=== PATIENT | female | born 1955 | race Caucasian/White ===

== ENCOUNTER 2021-04-18 01:01 | Inpatient (IN) ==
[2021-04-18 01:29] LABS: Basophils # 0.1 10*3/uL (0.0-0.2); Basophils % 0.6 % (0.0-0.8); Eosinophils # 0.1 10*3/uL (0.0-0.87); Eosinophils % 1.2 % (0.00-10.9); Hematocrit 35.2 VOL% (35.7-47.0); Hemoglobin 12.3 GM/DL (12.0-16.0); Immature Granulocytes % 1.3 %; Immature Granulocytes Absolute 0.15 #; Lymphocytes # 2.2 10*3/uL (1.4-4.0); Mean Corpuscular HGB Conc 34.9 GM/DL (32-36); Mean Corpuscular Volume 94.9 FL (87-102); Mean Platelet Volume 10.1 FL (9.6-12.0); Monocytes % 11.7 % (1.7-12.7); Neutrophils % 66.2 % (38.7-73.9); Platelet Count 173 T/CUMM (130-400); Red Blood Count 3.71 MC/CUMM (3.8-5.5); Red Cell Distribution Width 15.2 % (9.3-17.3); White Blood Count 11.5 T/CUMM (4-12)
[2021-04-18 01:40] LABS: INR 1.5; PT Patient Result 16.2 SECS (10.5-12.0)
[2021-04-18] MEDS ORDERED: ONDANSETRON 4 MG/2 ML VIAL IV ONE (01:50)
[2021-04-18] MEDS ORDERED: MORPHINE 2 MG/1 ML SYRINGE IV STA (01:50)
[2021-04-18 02:24] LABS: Albumin 3.2 G/DL (3.4-5.0); Bilirubin,Total 0.5 MG/DL (0.20-1.00); Calcium 8.6 MG/DL (8.5-10.1); Osmolality,Calculated 280.4 MOS/KG (273-304); Potassium 4.1 MMOL/L (3.5-5.1); Total Protein 6.8 G/DL (6.4-8.2)
[2021-04-18] MEDS ORDERED: MORPHINE 2 MG/1 ML SYRINGE IV PRN (02:45)
[2021-04-18] MEDS: PANTOPRAZOLE 40 MG VIAL IV SCH (09:25)
[2021-04-18] MEDS: ACETAMINOPHEN 325 MG TABLET PO PRN ×2 (09:28→20:44)
[2021-04-18] MEDS ORDERED: NITROGLYCERIN SL 0.4 MG TABLET SL PRN (10:10)
[2021-04-18] MEDS ORDERED: DEXTROSE 10% 250 ML BAG IV PRN (10:12)
[2021-04-18] MEDS ORDERED: GLUCAGON 1 MG VIAL IM PRN (10:12)
[2021-04-18] MEDS: ASPIRIN EC 81 MG TABLET PO SCH (13:19)
[2021-04-18] MEDS: BISOPROLOL 5 MG TABLET PO SCH ×2 (13:19→20:43)
[2021-04-18] MEDS: ENOXAPARIN 80 MG/0.8 ML SYRINGE SUBCUT SCH ×2 (13:24→23:37)
[2021-04-18] MEDS: INSULIN REGULAR 100 UNIT/ML SUBCUT SCH ×3 (16:14→20:47)
[2021-04-18] MEDS: ATORVASTATIN 20 MG TABLET PO SCH (20:44)
[2021-04-19 05:21] LABS: Basophils # 0.1 10*3/uL (0.0-0.2); Eosinophils # 0.2 10*3/uL (0.0-0.87); Eosinophils % 2.5 % (0.00-10.9); Hemoglobin 12.8 GM/DL (12.0-16.0); Immature Granulocytes % 1.1 %; Lymphocytes # 2.5 10*3/uL (1.4-4.0); Lymphocytes % 26.2 % (21.3-54.2); Mean Corpuscular HGB Conc 32.8 GM/DL (32-36); Mean Corpuscular Volume 97.7 FL (87-102); Mean Platelet Volume 10.2 FL (9.6-12.0); Monocytes % 10.7 % (1.7-12.7); Neutrophils % 58.5 % (38.7-73.9); Platelet Count 167 T/CUMM (130-400); Red Blood Count 3.99 MC/CUMM (3.8-5.5); Red Cell Distribution Width 15.4 % (9.3-17.3); White Blood Count 9.5 T/CUMM (4-12)
[2021-04-19 05:36] LABS: Calcium 8.4 MG/DL (8.5-10.1); Osmolality,Calculated 289.1 MOS/KG (273-304)
[2021-04-19] MEDS: BISOPROLOL 5 MG TABLET PO SCH ×2 (09:46→22:00)
[2021-04-19] MEDS: ASPIRIN EC 81 MG TABLET PO SCH (09:46)
[2021-04-19] MEDS: PANTOPRAZOLE 40 MG VIAL IV SCH (09:46)
[2021-04-19] MEDS: INSULIN REGULAR 100 UNIT/ML SUBCUT SCH ×4 (09:49→20:57)
[2021-04-19] MEDS: ENOXAPARIN 80 MG/0.8 ML SYRINGE SUBCUT SCH ×2 (11:08→22:03)
[2021-04-19] MEDS: ACETAMINOPHEN 325 MG TABLET PO PRN (18:29)
[2021-04-19] MEDS: ATORVASTATIN 20 MG TABLET PO SCH (22:00)
[2021-04-20 06:00] LABS: Calcium 9.3 MG/DL (8.5-10.1); Osmolality,Calculated 281.5 MOS/KG (273-304); Potassium 3.7 MMOL/L (3.5-5.1)
[2021-04-20] MEDS ORDERED: POTASSIUM CHLORIDE RIDER 10 MEQ/100 ML PREMIX IV PRN (07:45)
[2021-04-20] MEDS ORDERED: MAGNESIUM SULF RIDER 2 GM/50 ML PREMIX IV PRN (07:45)
[2021-04-20] MEDS: SODIUM CHLORIDE 0.9% 1,000 ML IV SCH ×2 (08:00→14:48)
[2021-04-20] MEDS: BISOPROLOL 5 MG TABLET PO SCH ×2 (09:50→21:20)
[2021-04-20] MEDS: ASPIRIN EC 81 MG TABLET PO SCH (09:50)
[2021-04-20] MEDS: PANTOPRAZOLE 40 MG VIAL IV SCH (09:50)
[2021-04-20] MEDS: ENOXAPARIN 80 MG/0.8 ML SYRINGE SUBCUT SCH ×2 (10:00→22:38)
[2021-04-20 10:30] LABS: Basophils % 0.5 % (0.2-1.0); Eosinophils # 0.2 # (0.0-0.70); Eosinophils % 2.6 % (0.0-10.0); Hematocrit 36.3 VOL% (37.0-47.0); Hemoglobin 12.4 GM/DL (12.0-16.0); Lymphocytes # 2.7 # (1.3-2.9); Lymphocytes % 31.5 % (20.5-45.5); Mean Corpuscular HGB Conc 34.2 GM/DL (32-36); Mean Platelet Volume 10.7 FL (7.4-10.4); Monocytes % 12.9 % (5.5-11.7); Neutrophils % 51.8 % (43.0-65.0); Platelet Count 152 T/CUMM (130-400); Red Blood Count 3.78 MC/CUMM (4.20-5.40); Red Cell Distribution Width 15.1 % (11.5-15.5); White Blood Count 8.7 T/CUMM (4.8-10.8)
[2021-04-20] MEDS ORDERED: NITROGLYCERIN SL 0.4 MG TABLET SL ONE ×2 (11:29→11:30)
[2021-04-20] MEDS: ACETAMINOPHEN 325 MG TABLET PO PRN (11:33)
[2021-04-20] MEDS: ONDANSETRON 4 MG/2 ML VIAL IV PRN (11:33)
[2021-04-20] MEDS ORDERED: ALUM/MAG/SIMETH/LIDO VISC 1:1 30 ML BOTTLE PO ONE (11:51)
[2021-04-20] MEDS ORDERED: NITROGLYCERIN 2% OINT 1 INCH/GM PACK TOP ONE (11:51)
[2021-04-20] MEDS: INSULIN REGULAR 100 UNIT/ML SUBCUT SCH ×4 (12:49→21:20)
[2021-04-20] MEDS ORDERED: DIAZEPAM 5 MG TABLET PO ONE (13:30)
[2021-04-20] MEDS ORDERED: diphenhydrAMINE CAP 25 MG CAPSULE PO ONE (13:30)
[2021-04-20] MEDS ORDERED: fentaNYL 100 MCG/2 ML VIAL ONE (15:17)
[2021-04-20] MEDS ORDERED: LIDOCAINE 1% 20 ML VIAL ONE (15:17)
[2021-04-20] MEDS ORDERED: MIDAZOLAM 2 MG/2 ML VIAL ONE (15:17)
[2021-04-20] MEDS ORDERED: GLUCAGON 1 MG VIAL IM PRN (16:25)
[2021-04-20] MEDS ORDERED: DEXTROSE 10% 25 GM/250 ML BAG IV PRN (16:25)
[2021-04-20] MEDS: ATORVASTATIN 40 MG TABLET PO SCH (21:20)
[2021-04-21] MEDS: SODIUM CHLORIDE 0.9% 1,000 ML IV SCH ×4 (00:16→23:23)
[2021-04-21 05:59] LABS: Basophils # 0.1 10*3/uL (0.0-0.2); Basophils % 0.7 % (0.0-0.8); Eosinophils # 0.2 10*3/uL (0.0-0.87); Eosinophils % 1.9 % (0.00-10.9); Hematocrit 39.1 VOL% (35.7-47.0); Lymphocytes # 1.9 10*3/uL (1.4-4.0); Mean Corpuscular HGB Conc 33.2 GM/DL (32-36); Mean Platelet Volume 10.3 FL (9.6-12.0); Monocytes % 10.3 % (1.7-12.7); Neutrophils % 67.1 % (38.7-73.9); Platelet Count 160 T/CUMM (130-400); Red Blood Count 4.03 MC/CUMM (3.8-5.5); Red Cell Distribution Width 14.9 % (9.3-17.3); White Blood Count 10.1 T/CUMM (4-12)
[2021-04-21 06:16] LABS: Calcium 9.5 MG/DL (8.5-10.1); Osmolality,Calculated 282.4 MOS/KG (273-304); Potassium 3.9 MMOL/L (3.5-5.1)
[2021-04-21] MEDS: ASPIRIN EC 81 MG TABLET PO SCH (08:31)
[2021-04-21] MEDS: BISOPROLOL 5 MG TABLET PO SCH ×2 (08:31→21:18)
[2021-04-21] MEDS: ENOXAPARIN 80 MG/0.8 ML SYRINGE SUBCUT SCH ×2 (10:16→23:16)
[2021-04-21] MEDS: ACETAMINOPHEN 325 MG TABLET PO PRN ×2 (10:16→23:16)
[2021-04-21] MEDS: traMADol 50 MG TABLET PO PRN (12:28)
[2021-04-21] MEDS: INSULIN REGULAR 100 UNIT/ML SUBCUT SCH ×3 (12:38→21:19)
[2021-04-21] MEDS: PANTOPRAZOLE 40 MG VIAL IV SCH (18:36)
[2021-04-21] MEDS: ATORVASTATIN 40 MG TABLET PO SCH (21:18)
[2021-04-21] MEDS: ASCORBIC ACID 500 MG TABLET PO SCH (21:18)
[2021-04-22 05:31] LABS: Basophils # 0.1 10*3/uL (0.0-0.2); Basophils % 0.7 % (0.0-0.8); Eosinophils # 0.2 10*3/uL (0.0-0.87); Eosinophils % 2.7 % (0.00-10.9); Hematocrit 34.8 VOL% (35.7-47.0); Hemoglobin 11.7 GM/DL (12.0-16.0); Immature Granulocytes % 0.9 %; Immature Granulocytes Absolute 0.08 #; Mean Corpuscular HGB Conc 33.6 GM/DL (32-36); Mean Corpuscular Volume 97.2 FL (87-102); Mean Platelet Volume 10.5 FL (9.6-12.0); Monocytes % 12.6 % (1.7-12.7); Neutrophils % 60.1 % (38.7-73.9); Platelet Count 147 T/CUMM (130-400); Red Blood Count 3.58 MC/CUMM (3.8-5.5); White Blood Count 8.7 T/CUMM (4-12)
[2021-04-22 06:53] LABS: Calcium 8.6 MG/DL (8.5-10.1); Osmolality,Calculated 285.4 MOS/KG (273-304); Potassium 3.5 MMOL/L (3.5-5.1)
[2021-04-22] MEDS ORDERED: BISACODYL 5 MG TABLET PO PRN (08:11)
[2021-04-22] MEDS: ASCORBIC ACID 500 MG TABLET PO SCH ×2 (09:38→20:06)
[2021-04-22] MEDS: PANTOPRAZOLE 40 MG TABLET PO SCH (09:38)
[2021-04-22] MEDS: ASPIRIN EC 81 MG TABLET PO SCH (09:38)
[2021-04-22] MEDS: BISOPROLOL 5 MG TABLET PO SCH ×2 (09:38→20:06)
[2021-04-22] MEDS: INSULIN REGULAR 100 UNIT/ML SUBCUT SCH ×4 (09:40→21:50)
[2021-04-22] MEDS: ENOXAPARIN 80 MG/0.8 ML SYRINGE SUBCUT SCH ×2 (10:50→23:55)
[2021-04-22] MEDS: SODIUM CHLORIDE 0.9% 1,000 ML IV SCH (13:12)
[2021-04-22] MEDS: traMADol 50 MG TABLET PO PRN ×2 (15:20→23:55)
[2021-04-22] MEDS: ONDANSETRON 4 MG/2 ML VIAL IV PRN (18:12)
[2021-04-22] MEDS: ATORVASTATIN 40 MG TABLET PO SCH (20:06)
[2021-04-22] MEDS: ACETAMINOPHEN 325 MG TABLET PO PRN (20:07)
[2021-04-23 05:12] LABS: Basophils # 0.1 10*3/uL (0.0-0.2); Basophils % 0.8 % (0.0-0.8); Eosinophils # 0.3 10*3/uL (0.0-0.87); Eosinophils % 2.4 % (0.00-10.9); Hematocrit 34.2 VOL% (35.7-47.0); Hemoglobin 11.6 GM/DL (12.0-16.0); Immature Granulocytes % 1.1 %; Immature Granulocytes Absolute 0.11 #; Lymphocytes # 2.3 10*3/uL (1.4-4.0); Lymphocytes % 22.5 % (21.3-54.2); Mean Corpuscular HGB Conc 33.9 GM/DL (32-36); Mean Corpuscular Volume 96.9 FL (87-102); Monocytes % 11.5 % (1.7-12.7); Neutrophils % 61.7 % (38.7-73.9); Platelet Count 153 T/CUMM (130-400); Red Blood Count 3.53 MC/CUMM (3.8-5.5); Red Cell Distribution Width 15.1 % (9.3-17.3); White Blood Count 10.4 T/CUMM (4-12)
[2021-04-23 05:24] LABS: Calcium 8.7 MG/DL (8.5-10.1); Osmolality,Calculated 283.3 MOS/KG (273-304); Potassium 3.7 MMOL/L (3.5-5.1)
[2021-04-23] MEDS ORDERED: BISOPROLOL 5 MG TABLET PO SCH (09:00)
[2021-04-23] MEDS ORDERED: INSULIN REGULAR 100 UNIT/ML SUBCUT SCH (09:00)
[2021-04-23] MEDS ORDERED: CYANOCOBALAMIN 1000 MCG/1 ML VIAL SUBCUT SCH (09:00)
[2021-04-23] MEDS: INSULIN REGULAR 100 UNIT/ML SUBCUT SCH ×4 (10:03→21:47)
[2021-04-23] MEDS: CHOLECALCIFEROL 5,000 UNIT TABLET PO SCH (10:12)
[2021-04-23] MEDS: ESCITALOPRAM 10 MG TABLET PO SCH (10:12)
[2021-04-23] MEDS: ASCORBIC ACID 500 MG TABLET PO SCH ×2 (10:12→21:37)
[2021-04-23] MEDS: GABAPENTIN 100 MG CAPSULE PO SCH ×2 (10:13→21:36)
[2021-04-23] MEDS: METHENAMINE HIPPURATE 1 GM TABLET PO SCH ×2 (10:13→21:35)
[2021-04-23] MEDS: BISOPROLOL 5 MG TABLET PO SCH ×2 (10:13→21:37)
[2021-04-23] MEDS: ASPIRIN EC 81 MG TABLET PO SCH (10:13)
[2021-04-23] MEDS: PANTOPRAZOLE 40 MG TABLET PO SCH (10:13)
[2021-04-23] MEDS: ENOXAPARIN 80 MG/0.8 ML SYRINGE SUBCUT SCH (10:14)
[2021-04-23] MEDS: traMADol 50 MG TABLET PO PRN ×2 (14:30→21:36)
[2021-04-23] MEDS: ATORVASTATIN 40 MG TABLET PO SCH (21:35)
[2021-04-23] MEDS: ATORVASTATIN 20 MG TABLET PO SCH (21:36)
[2021-04-24] MEDS: ENOXAPARIN 80 MG/0.8 ML SYRINGE SUBCUT SCH ×3 (00:04→23:21)
[2021-04-24 05:06] LABS: Basophils # 0.1 10*3/uL (0.0-0.2); Basophils % 0.9 % (0.0-0.8); Eosinophils # 0.3 10*3/uL (0.0-0.87); Eosinophils % 3.1 % (0.00-10.9); Hematocrit 34.9 VOL% (35.7-47.0); Hemoglobin 11.7 GM/DL (12.0-16.0); Immature Granulocytes % 0.8 %; Immature Granulocytes Absolute 0.08 #; Lymphocytes # 2.8 10*3/uL (1.4-4.0); Lymphocytes % 28.3 % (21.3-54.2); Mean Corpuscular HGB Conc 33.5 GM/DL (32-36); Mean Platelet Volume 10.2 FL (9.6-12.0); Monocytes % 11.6 % (1.7-12.7); Neutrophils % 55.3 % (38.7-73.9); Platelet Count 150 T/CUMM (130-400); Red Blood Count 3.56 MC/CUMM (3.8-5.5); Red Cell Distribution Width 15.2 % (9.3-17.3); White Blood Count 9.7 T/CUMM (4-12)
[2021-04-24 05:20] LABS: Calcium 8.6 MG/DL (8.5-10.1); Osmolality,Calculated 283.3 MOS/KG (273-304); Potassium 3.9 MMOL/L (3.5-5.1)
[2021-04-24] MEDS: CHOLECALCIFEROL 5,000 UNIT TABLET PO SCH (09:25)
[2021-04-24] MEDS: BISOPROLOL 5 MG TABLET PO SCH ×2 (09:25→21:49)
[2021-04-24] MEDS: METHENAMINE HIPPURATE 1 GM TABLET PO SCH ×2 (09:25→20:45)
[2021-04-24] MEDS: ASPIRIN EC 81 MG TABLET PO SCH (09:26)
[2021-04-24] MEDS: ESCITALOPRAM 10 MG TABLET PO SCH (09:26)
[2021-04-24] MEDS: ASCORBIC ACID 500 MG TABLET PO SCH ×2 (09:26→20:45)
[2021-04-24] MEDS: PANTOPRAZOLE 40 MG TABLET PO SCH (09:26)
[2021-04-24] MEDS: GABAPENTIN 100 MG CAPSULE PO SCH ×2 (09:26→20:45)
[2021-04-24] MEDS: traMADol 50 MG TABLET PO PRN (11:23)
[2021-04-24] MEDS: INSULIN REGULAR 100 UNIT/ML SUBCUT SCH ×4 (11:29→21:44)
[2021-04-24] MEDS ORDERED: NITROGLYCERIN SL 0.4 MG TABLET SL ONE ×2 (17:47→18:02)
[2021-04-24] MEDS: NITROGLYCERIN SL 0.4 MG TABLET SL PRN ×3 (17:49→18:03)
[2021-04-24] MEDS: ONDANSETRON 4 MG/2 ML VIAL IV PRN (17:49)
[2021-04-24] MEDS: CLORAZEPATE 3.75 MG TABLET PO PRN (18:19)
[2021-04-24] MEDS: ACETAMINOPHEN 325 MG TABLET PO PRN (18:22)
[2021-04-24] MEDS ORDERED: MORPHINE 4 MG/1 ML VIAL ONE (18:28)
[2021-04-24] MEDS: MORPHINE 4 MG/1 ML VIAL IV PRN (18:37)
[2021-04-24] MEDS ORDERED: METOPROLOL TARTRATE 5 MG/5 ML VIAL IV ONE (19:27)
[2021-04-24] MEDS: ATORVASTATIN 20 MG TABLET PO SCH (20:45)
[2021-04-24] MEDS: ATORVASTATIN 40 MG TABLET PO SCH (20:48)
[2021-04-24] MEDS ORDERED: SODIUM CHLORIDE 0.9% 250 ML IV ONE (21:30)
[2021-04-25 05:40] LABS: Basophils # 0.1 10*3/uL (0.0-0.2); Basophils % 0.8 % (0.0-0.8); Eosinophils # 0.4 10*3/uL (0.0-0.87); Eosinophils % 3.5 % (0.00-10.9); Hematocrit 34.4 VOL% (35.7-47.0); Hemoglobin 11.8 GM/DL (12.0-16.0); Immature Granulocytes % 1.4 %; Immature Granulocytes Absolute 0.15 #; Lymphocytes # 2.5 10*3/uL (1.4-4.0); Lymphocytes % 24.1 % (21.3-54.2); Mean Corpuscular HGB Conc 34.3 GM/DL (32-36); Mean Corpuscular Volume 96.9 FL (87-102); Mean Platelet Volume 10.1 FL (9.6-12.0); Monocytes % 11.3 % (1.7-12.7); Neutrophils % 58.9 % (38.7-73.9); Platelet Count 167 T/CUMM (130-400); Red Blood Count 3.55 MC/CUMM (3.8-5.5); Red Cell Distribution Width 15.3 % (9.3-17.3); White Blood Count 10.4 T/CUMM (4-12)
[2021-04-25 06:16] LABS: Albumin 2.5 G/DL (3.4-5.0); Bilirubin,Total 0.6 MG/DL (0.20-1.00); CKMB % 3.2 %; Calcium 8.7 MG/DL (8.5-10.1); Osmolality,Calculated 282.4 MOS/KG (273-304); Potassium 3.9 MMOL/L (3.5-5.1); Total Protein 6.5 G/DL (6.4-8.2)
[2021-04-25 06:26] LABS: High Sensitive Troponin I* 6415.5 ng/L (0-54)
[2021-04-25 09:27] LABS: ABG Base Excess 0.6 MMOL/L (-2.5-2.5); ABG HCO3 25.6 MMOL/L (20-26); ABG Oxygen Saturation 95.1 % (95-100); ABG PCO2 42.9 MM HG (35-48); ABG PH 7.394 (7.35-7.45); ABG TCO2 26.9 MMOL/L (23-27)
[2021-04-25] MEDS: GABAPENTIN 100 MG CAPSULE PO SCH ×2 (10:00→21:11)
[2021-04-25] MEDS: ASPIRIN EC 81 MG TABLET PO SCH (10:01)
[2021-04-25] MEDS: ASCORBIC ACID 500 MG TABLET PO SCH ×2 (10:02→21:11)
[2021-04-25] MEDS: CHOLECALCIFEROL 5,000 UNIT TABLET PO SCH (10:04)
[2021-04-25] MEDS: CLORAZEPATE 3.75 MG TABLET PO PRN ×2 (10:04→14:15)
[2021-04-25] MEDS: METHENAMINE HIPPURATE 1 GM TABLET PO SCH ×2 (10:04→21:11)
[2021-04-25] MEDS: PANTOPRAZOLE 40 MG TABLET PO SCH (10:04)
[2021-04-25] MEDS: ESCITALOPRAM 10 MG TABLET PO SCH (10:04)
[2021-04-25] MEDS: INSULIN REGULAR 100 UNIT/ML SUBCUT SCH ×4 (10:09→21:12)
[2021-04-25] MEDS: BISOPROLOL 5 MG TABLET PO SCH ×2 (11:17→21:11)
[2021-04-25] MEDS: HEPARIN DRIP 25,000 UNITS/500 ML PREMIX IV SCH (12:47)
[2021-04-25] MEDS: traMADol 50 MG TABLET PO PRN (14:16)
[2021-04-25] MEDS: ONDANSETRON 4 MG/2 ML VIAL IV PRN (16:13)
[2021-04-25] MEDS: MORPHINE 4 MG/1 ML VIAL IV PRN ×2 (16:22→19:21)
[2021-04-25] MEDS: NITROGLYCERIN SL 0.4 MG TABLET SL PRN ×3 (17:02→17:12)
[2021-04-25] MEDS: ATORVASTATIN 40 MG TABLET PO SCH (21:11)
[2021-04-26 07:21] LABS: Basophils # 0.1 10*3/uL (0.0-0.2); Basophils % 0.9 % (0.0-0.8); Eosinophils # 0.3 10*3/uL (0.0-0.87); Eosinophils % 2.6 % (0.00-10.9); Hematocrit 33.4 VOL% (35.7-47.0); Hemoglobin 11.3 GM/DL (12.0-16.0); Immature Granulocytes % 1.6 %; Immature Granulocytes Absolute 0.16 #; Lymphocytes # 2.5 10*3/uL (1.4-4.0); Lymphocytes % 24.3 % (21.3-54.2); Mean Corpuscular HGB Conc 33.8 GM/DL (32-36); Mean Corpuscular Volume 96.5 FL (87-102); Mean Platelet Volume 10.2 FL (9.6-12.0); Monocytes % 13.4 % (1.7-12.7); Neutrophils % 57.2 % (38.7-73.9); Platelet Count 192 T/CUMM (130-400); Red Blood Count 3.46 MC/CUMM (3.8-5.5); Red Cell Distribution Width 15.4 % (9.3-17.3); White Blood Count 10.3 T/CUMM (4-12)
[2021-04-26 07:25] LABS: Calcium 8.8 MG/DL (8.5-10.1); Osmolality,Calculated 279.8 MOS/KG (273-304)
[2021-04-26] MEDS ORDERED: HEPARIN 5,000 UNIT/1 ML VIAL IV ONE (07:44)
[2021-04-26] MEDS ORDERED: MAGNESIUM SULF RIDER 2 GM/50 ML PREMIX IV ONE (07:54)
[2021-04-26] MEDS: CLORAZEPATE 3.75 MG TABLET PO PRN ×4 (08:23→23:25)
[2021-04-26] MEDS: INSULIN REGULAR 100 UNIT/ML SUBCUT SCH ×4 (08:23→20:44)
[2021-04-26] MEDS: ASPIRIN EC 81 MG TABLET PO SCH (08:24)
[2021-04-26] MEDS: ESCITALOPRAM 10 MG TABLET PO SCH (08:24)
[2021-04-26] MEDS: ASCORBIC ACID 500 MG TABLET PO SCH ×2 (08:24→20:23)
[2021-04-26] MEDS: GABAPENTIN 100 MG CAPSULE PO SCH ×2 (08:24→20:23)
[2021-04-26] MEDS: CHOLECALCIFEROL 5,000 UNIT TABLET PO SCH (08:24)
[2021-04-26] MEDS: BISOPROLOL 5 MG TABLET PO SCH ×2 (08:24→20:23)
[2021-04-26] MEDS: METHENAMINE HIPPURATE 1 GM TABLET PO SCH ×2 (08:24→20:23)
[2021-04-26] MEDS: PANTOPRAZOLE 40 MG TABLET PO SCH (08:24)
[2021-04-26] MEDS ORDERED: NF- (Semaglutide [Ozempic] 0.25 mg or 0.5 mg(2 mg/1.5 mL) pen injecto SUBCUT SCH (08:39)
[2021-04-26 10:03] LABS: Eosinophils 3 % (0-10); Lymphocytes 19 % (20-55); Segmented Neutrophils 68 % (50-85); Total Cells Counted 100
[2021-04-26 10:06] LABS: Atypical Lymphocytes Few; Reactive Lymphocytes Few; Toxic Granulation 1+
[2021-04-26 10:07] LABS: Platelet Estimate Normal; Polychromasia Slight
[2021-04-26] MEDS: CHLORHEXIDINE 0.12% ORAL RINSE 60 ML BOTTLE SWISH/SPIT SCH ×2 (10:11→20:23)
[2021-04-26] MEDS: CHLORHEXIDINE 4% SOLN 118 ML BOTTLE TOP SCH ×3 (11:03→20:45)
[2021-04-26] MEDS: traMADol 50 MG TABLET PO PRN (11:09)
[2021-04-26] MEDS: HEPARIN DRIP 25,000 UNITS/500 ML PREMIX IV SCH (12:55)
[2021-04-26] MEDS: ACETAMINOPHEN 325 MG TABLET PO PRN (12:56)
[2021-04-26] MEDS ORDERED: SODIUM CHLORIDE 0.9% 1,000 ML IV SCH (15:00)
[2021-04-26] MEDS: MORPHINE 4 MG/1 ML VIAL IV PRN ×2 (16:09→23:25)
[2021-04-26] MEDS: ATORVASTATIN 40 MG TABLET PO SCH (20:23)
[2021-04-27] MEDS ORDERED: VANCOMYCIN 500 MG VIAL ONE (04:42)
[2021-04-27] MEDS ORDERED: VANCOMYCIN 1,000 MG VIAL ONE (04:42)
[2021-04-27] MEDS ORDERED: PAPAVERINE 60 MG/2 ML VIAL ONE (04:42)
[2021-04-27] MEDS ORDERED: VANCOMYCIN INJ 1,000 MG in SODIUM CHLORIDE 0.9% 250 ML IV ONE (05:00)
[2021-04-27 05:21] LABS: Basophils # 0.1 10*3/uL (0.0-0.2); Basophils % 0.8 % (0.0-0.8); Eosinophils # 0.3 10*3/uL (0.0-0.87); Hematocrit 33.8 VOL% (35.7-47.0); Hemoglobin 11.5 GM/DL (12.0-16.0); Immature Granulocytes % 1.5 %; Immature Granulocytes Absolute 0.16 #; Lymphocytes # 2.3 10*3/uL (1.4-4.0); Lymphocytes % 21.1 % (21.3-54.2); Mean Corpuscular Volume 96.3 FL (87-102); Mean Platelet Volume 10.3 FL (9.6-12.0); Monocytes % 12.8 % (1.7-12.7); Neutrophils % 60.8 % (38.7-73.9); Platelet Count 205 T/CUMM (130-400); Red Blood Count 3.51 MC/CUMM (3.8-5.5); Red Cell Distribution Width 15.4 % (9.3-17.3); White Blood Count 10.7 T/CUMM (4-12)
[2021-04-27] MEDS ORDERED: DIAZEPAM 5 MG TABLET PO ONE (05:37)
[2021-04-27] MEDS ORDERED: FAMOTIDINE 20 MG TABLET PO ONE (05:38)
[2021-04-27 05:54] LABS: CKMB % 3.8 %; Calcium 9.2 MG/DL (8.5-10.1); Potassium 4.1 MMOL/L (3.5-5.1)
[2021-04-27 05:55] LABS: High Sensitive Troponin I* 2879.1 ng/L (0-54)
[2021-04-27] MEDS ORDERED: SUFentanil 250 MCG/5 ML AMP ONE ×2 (06:02)
[2021-04-27] MEDS ORDERED: MIDAZOLAM 10 MG/2 ML VIAL ONE ×3 (06:02→08:36)
[2021-04-27] MEDS ORDERED: AMINOCAPROIC ACID 5,000 MG/20 ML VIAL ONE ×4 (06:11)
[2021-04-27] MEDS ORDERED: LIDOCAINE 2% 5 ML VIAL ONE ×2 (06:14→11:43)
[2021-04-27] MEDS ORDERED: SUCCINYLCHOLINE 200 MG/10 ML VIAL ONE (06:14)
[2021-04-27 07:39] LABS: ABG Base Excess -0.1 MMOL/L (-2.5-2.5); ABG HCO3 24.4 MMOL/L (20-26); ABG Oxygen Saturation 99.9 % (95-100); ABG PCO2 47.1 MM HG (35-48); ABG PH 7.349 (7.35-7.45); ABG TCO2 23.6 MMOL/L (23-27); Glucose Heart Surgery 268 MG/DL (74-106); Hematocrit Heart Surgery 32.4 PERCENT (37-47); Hemoglobin Heart Surgery 10.5 G/DL (12.0-16.0); Ionized Calcium Arterial 1.18 MMOL/L (1.21-1.46); PCO2 Patient Temp Arterial 47.1 MMHG; PH Patient Temp Arterial 7.349; Patient Temperature 37 CELCIUS; Potassium Heart/CVR 4.1 MMOL/L (3.5-5.1); Sodium Heart/CVR 138 MMOL/L (135-145)
[2021-04-27 08:06] LABS: Bacteria,Urine Many /HPF (Few); RBC,Urine 19 /HPF (0-4)
[2021-04-27] MEDS ORDERED: ETOMIDATE 40 MG/20 ML VIAL IV ONE (08:06)
[2021-04-27] MEDS ORDERED: VECURONIUM 10 MG VIAL IV ONE ×3 (08:06→10:29)
[2021-04-27] MEDS ORDERED: SEVOFLURANE 1 UNIT/15 MINUTE INH ONE (08:06)
[2021-04-27 08:07] LABS: Bilirubin,Urine Negative (Negative); Blood, Urine Trace mg/dL (Negative); Glucose,Urine (UA) Negative (Negative); Ketones,Urine Negative (Negative); Nitrite,Urine Negative (Negative); Protein,Urine 1+ MG/DL; Urine Appearance Cloudy (Clear); Urine Color Light Yellow (Yellow); Urine Specific Gravity 1.015 (1.001-1.035); Urine Urobilinogen 0.2 EU/DL (<2.0); Urine pH 5.5 (4.5-8.0)
[2021-04-27] MEDS ORDERED: SODIUM BICARBONATE 50 MEQ/50 ML VIAL IV ONE ×2 (08:46→11:44)
[2021-04-27] MEDS ORDERED: NITROPRUSSIDE 50 MG/2 ML VIAL ONE (08:47)
[2021-04-27] MEDS ORDERED: POTASSIUM CHLORIDE RIDER 20 MEQ/100 ML PREMIX IV ONE (08:48)
[2021-04-27] MEDS ORDERED: PHENYLEPHRINE DRIP 40 MG/250 ML PREMIX IV ONE (08:49)
[2021-04-27] MEDS ORDERED: CALCIUM CHLORIDE 1,000 MG/10 ML SYRINGE IV ONE (08:49)
[2021-04-27 08:52] LABS: PCO2 Patient Temp Venous 33.6 MM HG; PH Patient Temp Venous 7.479; PO2 Patient Temp Venous 35.8 MM HG; Potassium Heart/CVR 4.6 MMOL/L (3.5-5.1); VBG Base Excess 1.8 MEQ/L (0-4); VBG HCO3 25.9 MEQ/L (24-28); VBG Oxygen Saturation 80.3 %; VBG PCO2 38.9 MMHG (41-51); VBG PH 7.435; VBG Total CO2 25.2 MMOL/L
[2021-04-27 08:56] LABS: Hemoglobin Heart Surgery 5.5 G/DL (12.0-16.0)
[2021-04-27 08:57] LABS: Hematocrit Heart Surgery 17.5 PERCENT (37-47)
[2021-04-27] MEDS ORDERED: ALBUMIN 5% 12.5 GM/250 ML VIAL IV ONE (08:58)
[2021-04-27 09:22] LABS: Hematocrit Heart Surgery 24.4 PERCENT (37-47); Hemoglobin Heart Surgery 7.8 G/DL (12.0-16.0); PCO2 Patient Temp Venous 31.1 MM HG; PH Patient Temp Venous 7.466; Potassium Heart/CVR 4.2 MMOL/L (3.5-5.1); VBG Base Excess -0.8 MEQ/L (0-4); VBG HCO3 23.6 MEQ/L (24-28); VBG Oxygen Saturation 81.3 %; VBG PH 7.421; VBG Total CO2 21.9 MMOL/L
[2021-04-27] MEDS: INSULIN REGULAR 100 UNIT/ML SUBCUT SCH ×2 (09:47→13:45)
[2021-04-27] MEDS: METHENAMINE HIPPURATE 1 GM TABLET PO SCH (09:48)
[2021-04-27] MEDS: ASPIRIN EC 81 MG TABLET PO SCH (09:48)
[2021-04-27] MEDS: PANTOPRAZOLE 40 MG TABLET PO SCH (09:48)
[2021-04-27] MEDS: ESCITALOPRAM 10 MG TABLET PO SCH (09:48)
[2021-04-27] MEDS: GABAPENTIN 100 MG CAPSULE PO SCH (09:48)
[2021-04-27] MEDS: CHLORHEXIDINE 0.12% ORAL RINSE 60 ML BOTTLE SWISH/SPIT SCH ×2 (09:48→20:43)
[2021-04-27] MEDS: CHOLECALCIFEROL 5,000 UNIT TABLET PO SCH (09:49)
[2021-04-27] MEDS: ASCORBIC ACID 500 MG TABLET PO SCH (09:49)
[2021-04-27] MEDS: BISOPROLOL 5 MG TABLET PO SCH (09:49)
[2021-04-27 09:52] LABS: Hematocrit Heart Surgery 26.5 PERCENT (37-47); Hemoglobin Heart Surgery 8.5 G/DL (12.0-16.0); PH Patient Temp Venous 7.522; PO2 Patient Temp Venous 34.7 MM HG; Potassium Heart/CVR 3.9 MMOL/L (3.5-5.1); VBG HCO3 24.2 MEQ/L (24-28); VBG Oxygen Saturation 82.4 %; VBG PCO2 31.2 MMHG (41-51); VBG PH 7.477; VBG PO2 42.7 MMHG (17-40); VBG Total CO2 21.4 MMOL/L
[2021-04-27 10:24] LABS: Hematocrit Heart Surgery 26.9 PERCENT (37-47); Hemoglobin Heart Surgery 8.7 G/DL (12.0-16.0); PCO2 Patient Temp Venous 27.3 MM HG; PH Patient Temp Venous 7.508; PO2 Patient Temp Venous 34.7 MM HG; Potassium Heart/CVR 4.1 MMOL/L (3.5-5.1); VBG Base Excess -0.7 MEQ/L (0-4); VBG HCO3 23.6 MEQ/L (24-28); VBG Oxygen Saturation 76.5 %; VBG PCO2 28.6 MMHG (41-51); VBG PH 7.493; VBG PO2 37.2 MMHG (17-40); VBG Total CO2 20.3 MMOL/L
[2021-04-27] MEDS ORDERED: HEPARIN/NACL 0.9% 2 UNITS/ML 1,000 UNIT/500 ML BAG IV ONE (10:32)
[2021-04-27] MEDS ORDERED: PHENYLEPHRINE DRIP 20 MG/250 ML PREMIX IV ONE ×2 (10:32→10:41)
[2021-04-27] MEDS ORDERED: CALCIUM CHLORIDE 1,000 MG/10 ML VIAL IV ONE (10:43)
[2021-04-27] MEDS ORDERED: DOBUTamine 500 MG/250 ML PREMIX IV ONE (11:00)
[2021-04-27] MEDS ORDERED: EPINEPHrine 1 MG/ML VIAL ONE ×2 (11:18→12:11)
[2021-04-27 11:39] LABS: ABG Base Excess -2.9 MMOL/L (-2.5-2.5); ABG PCO2 33.1 MM HG (35-48); ABG PH 7.411 (7.35-7.45); ABG TCO2 19.1 MMOL/L (23-27); Glucose Heart Surgery 422 MG/DL (74-106); Hematocrit Heart Surgery 31.1 PERCENT (37-47); Hemoglobin Heart Surgery 10.1 G/DL (12.0-16.0); Ionized Calcium Arterial 1.18 MMOL/L (1.21-1.46); PCO2 Patient Temp Arterial 33.1 MMHG; PH Patient Temp Arterial 7.411; Patient Temperature 37 CELCIUS; Potassium Heart/CVR 3.5 MMOL/L (3.5-5.1); Sodium Heart/CVR 135 MMOL/L (135-145)
[2021-04-27] MEDS ORDERED: ALBUMIN 25% 25 GM/100 ML VIAL IV ONE (11:43)
[2021-04-27] MEDS ORDERED: MAGNESIUM SULFATE 5 GM/10 ML VIAL IV ONE (11:43)
[2021-04-27] MEDS ORDERED: methylPREDNISolone SOD SUC 1,000 MG/8 ML VIAL ONE (11:43)
[2021-04-27] MEDS ORDERED: DEXTROSE 5% KCL 20 MEQ 20 MEQ/1,000 ML BAG IV ONE (11:43)
[2021-04-27] MEDS ORDERED: MANNITOL 100 GM/500 ML BAG IV ONE (11:43)
[2021-04-27] MEDS ORDERED: HEPARIN 10,000 UNIT/10 ML VIAL ONE (11:44)
[2021-04-27] MEDS ORDERED: FUROSEMIDE 20 MG/2 ML VIAL ONE (11:44)
[2021-04-27] MEDS ORDERED: PROTAMINE SULFATE 250 MG/25 ML VIAL IV ONE (11:44)
[2021-04-27] MEDS ORDERED: PROTAMINE SULFATE 50 MG/5 ML VIAL IV ONE (11:44)
[2021-04-27] MEDS ORDERED: PHENYLEPHRINE DRIP 40 MG/250 ML PREMIX IV PRN (11:50)
[2021-04-27] MEDS ORDERED: INSULIN REGULAR 100 UNIT/ML IV ONE (11:50)
[2021-04-27] MEDS ORDERED: ACETAMINOPHEN 650 MG SUPP RECTAL PRN (11:50)
[2021-04-27] MEDS ORDERED: NITROPRUSSIDE 100 MG in DEXTROSE 5% 250 ML IV PRN (11:50)
[2021-04-27] MEDS ORDERED: DEXTROSE 10% 250 ML BAG IV PRN ×2 (11:50)
[2021-04-27] MEDS ORDERED: CALCIUM CHLORIDE 1,000 MG/10 ML SYRINGE IV PRN (11:50)
[2021-04-27] MEDS ORDERED: MIDAZOLAM 10 MG/2 ML VIAL IV PRN (11:50)
[2021-04-27] MEDS ORDERED: ONDANSETRON 4 MG/2 ML VIAL IV PRN (11:50)
[2021-04-27] MEDS ORDERED: VECURONIUM 10 MG VIAL IV PRN ×2 (11:50)
[2021-04-27] MEDS ORDERED: CHLORHEXIDINE 4% SOLN 118 ML BOTTLE TOP PRN (11:50)
[2021-04-27] MEDS ORDERED: MAGNESIUM SULF RIDER 4 GM/100 ML PREMIX IV PRN (11:50)
[2021-04-27] MEDS ORDERED: MIDAZOLAM 2 MG/2 ML VIAL IV PRN (11:50)
[2021-04-27] MEDS ORDERED: MAGNESIUM SULF RIDER 2 GM/50 ML PREMIX IV PRN (11:50)
[2021-04-27] MEDS ORDERED: SODIUM CHLORIDE 0.45% 1,000 ML IV SCH ×2 (12:00)
[2021-04-27 12:43] LABS: ABG Base Excess -5.3 MMOL/L (-2.5-2.5); ABG HCO3 20.1 MMOL/L (20-26); ABG Oxygen Saturation 96.1 % (95-100); ABG PCO2 35.8 MM HG (35-48); ABG PO2 86.4 MM HG (80-95); Glucose Heart Surgery 483 MG/DL (74-106); Hematocrit Heart Surgery 32.2 PERCENT (37-47); Hemoglobin Heart Surgery 10.4 G/DL (12.0-16.0); Potassium Heart/CVR 3.1 MMOL/L (3.5-5.1)
[2021-04-27 12:45] LABS: Basophils # 0.1 10*3/uL (0.0-0.2); Basophils % 0.7 % (0.0-0.8); Eosinophils # 0.1 10*3/uL (0.0-0.87); Eosinophils % 0.8 % (0.00-10.9); Hematocrit 30.3 VOL% (35.7-47.0); Hemoglobin 10.3 GM/DL (12.0-16.0); Immature Granulocytes % 2.3 %; Immature Granulocytes Absolute 0.26 #; Lymphocytes # 1.8 10*3/uL (1.4-4.0); Lymphocytes % 15.6 % (21.3-54.2); Mean Corpuscular Volume 93.8 FL (87-102); Mean Platelet Volume 10.5 FL (9.6-12.0); Monocytes % 9.1 % (1.7-12.7); NRBC # 0.02 10*3/uL; Neutrophils % 71.5 % (38.7-73.9); Platelet Count 106 T/CUMM (130-400); Red Blood Count 3.23 MC/CUMM (3.8-5.5); Red Cell Distribution Width 15.5 % (9.3-17.3); White Blood Count 11.2 T/CUMM (4-12)
[2021-04-27] MEDS: POTASSIUM CHLORIDE RIDER 20 MEQ/100 ML PREMIX IV PRN ×3 (12:48→20:43)
[2021-04-27 13:02] LABS: INR 1.2; PT Patient Result 13.2 SECS (10.5-12.0); Partial Thromboplastin Time 27.1 SECS (23.8-32.1)
[2021-04-27 13:04] LABS: CKMB % 7.3 %
[2021-04-27 13:07] LABS: Albumin 2.8 G/DL (3.4-5.0); Bilirubin,Total 1.4 MG/DL (0.20-1.00); Calcium 8.5 MG/DL (8.5-10.1); High Sensitive Troponin I* 12066.6 ng/L (0-54); Osmolality,Calculated 295.7 MOS/KG (273-304); Potassium 3.1 MMOL/L (3.5-5.1); Total Protein 5.9 G/DL (6.4-8.2)
[2021-04-27] MEDS: HEPARIN DRIP 25,000 UNITS/500 ML PREMIX IV SCH (13:45)
[2021-04-27] MEDS: INSULIN REGULAR DRIP 100 ML IV SCH ×2 (13:55→19:44)
[2021-04-27] MEDS: POTASSIUM CHLORIDE RIDER 10 MEQ/100 ML PREMIX IV PRN ×2 (14:06→18:09)
[2021-04-27] MEDS: LACTATED RINGERS 250 ML IV PRN ×6 (14:08→23:10)
[2021-04-27 14:48] LABS: Lymphocytes 9 % (20-55); Platelet Estimate Normal; Segmented Neutrophils 86 % (50-85); Total Cells Counted 100
[2021-04-27 15:04] LABS: ABG Base Excess -4.6 MMOL/L (-2.5-2.5); ABG HCO3 20.6 MMOL/L (20-26); ABG Oxygen Saturation 98.9 % (95-100); ABG PCO2 33.2 MM HG (35-48); ABG PH 7.381 (7.35-7.45); ABG TCO2 17.7 MMOL/L (23-27); Glucose Heart Surgery 428 MG/DL (74-106); Hematocrit Heart Surgery 33.8 PERCENT (37-47)
[2021-04-27] MEDS: ALBUMIN 5% 12.5 GM/250 ML VIAL IV PRN ×2 (15:13→18:22)
[2021-04-27] MEDS: INSULIN REGULAR 100 UNIT/ML IV PRN ×3 (16:11→18:10)
[2021-04-27 17:14] LABS: ABG Base Excess -4.5 MMOL/L (-2.5-2.5); ABG HCO3 20.7 MMOL/L (20-26); ABG Oxygen Saturation 98.6 % (95-100); ABG PCO2 34.3 MM HG (35-48); ABG PH 7.375 (7.35-7.45); ABG TCO2 18.3 MMOL/L (23-27); Glucose Heart Surgery 377 MG/DL (74-106); Hematocrit Heart Surgery 30.6 PERCENT (37-47); Hemoglobin Heart Surgery 9.9 G/DL (12.0-16.0); Potassium Heart/CVR 3.6 MMOL/L (3.5-5.1)
[2021-04-27] MEDS ORDERED: FUROSEMIDE 40 MG/4 ML VIAL IV ONE (18:04)
[2021-04-27] MEDS: DOBUTamine 500 MG/250 ML PREMIX IV PRN (19:00)
[2021-04-27 19:49] LABS: ABG Base Excess -2.9 MMOL/L (-2.5-2.5); ABG Oxygen Saturation 97.8 % (95-100); ABG PCO2 40.4 MM HG (35-48); ABG PH 7.352 (7.35-7.45); ABG TCO2 20.5 MMOL/L (23-27); Glucose Heart Surgery 296 MG/DL (74-106); Hematocrit Heart Surgery 30.6 PERCENT (37-47); Hemoglobin Heart Surgery 9.9 G/DL (12.0-16.0); Potassium Heart/CVR 3.9 MMOL/L (3.5-5.1)
[2021-04-27 20:08] LABS: CKMB % 5.3 %
[2021-04-27 20:15] LABS: High Sensitive Troponin I* 15802.6 ng/L (0-54)
[2021-04-27 21:57] LABS: ABG Base Excess -2.3 MMOL/L (-2.5-2.5); ABG HCO3 22.5 MMOL/L (20-26); ABG Oxygen Saturation 97.3 % (95-100); ABG PH 7.344 (7.35-7.45); ABG PO2 99.3 MM HG (80-95); ABG TCO2 21.3 MMOL/L (23-27); Glucose Heart Surgery 224 MG/DL (74-106); Hematocrit Heart Surgery 31.9 PERCENT (37-47); Hemoglobin Heart Surgery 10.3 G/DL (12.0-16.0); Potassium Heart/CVR 4.1 MMOL/L (3.5-5.1)
[2021-04-27] MEDS: VANCOMYCIN INJ 1,000 MG in SODIUM CHLORIDE 0.9% 250 ML IV SCH (23:23)
[2021-04-27] MEDS: MORPHINE 10 MG/1 ML VIAL IV PRN (23:35)
[2021-04-28] MEDS: INSULIN REGULAR DRIP 100 ML IV SCH ×2 (00:09→12:05)
[2021-04-28] MEDS: ALBUMIN 5% 12.5 GM/250 ML VIAL IV PRN ×4 (00:11→18:43)
[2021-04-28 01:06] LABS: Glucose Heart Surgery 128 MG/DL (74-106); Hemoglobin Heart Surgery 10.4 G/DL (12.0-16.0); Sodium Heart/CVR 137 MMOL/L (135-145); VBG Base Excess -0.7 MEQ/L (0-4); VBG HCO3 25.1 MEQ/L (24-28); VBG Oxygen Saturation 64.4 %; VBG PCO2 46.4 MMHG (41-51); VBG PH 7.351; VBG PO2 33.8 MMHG (17-40); VBG Total CO2 26.5 MMOL/L
[2021-04-28] MEDS ORDERED: FUROSEMIDE 40 MG/4 ML VIAL IV ONE ×2 (01:44→18:20)
[2021-04-28 01:59] LABS: ABG Base Excess -1.7 MMOL/L (-2.5-2.5); ABG Oxygen Saturation 98.7 % (95-100); ABG PCO2 38.4 MM HG (35-48); ABG PH 7.386 (7.35-7.45); ABG TCO2 20.9 MMOL/L (23-27); Glucose Heart Surgery 159 MG/DL (74-106); Hematocrit Heart Surgery 31.4 PERCENT (37-47); Hemoglobin Heart Surgery 10.2 G/DL (12.0-16.0); Potassium Heart/CVR 4.8 MMOL/L (3.5-5.1)
[2021-04-28 04:00] LABS: ABG HCO3 21.8 MMOL/L (20-26); ABG Oxygen Saturation 96.8 % (95-100); ABG PCO2 37.9 MM HG (35-48); ABG PH 7.378 (7.35-7.45); ABG PO2 94.5 MM HG (80-95); Glucose Heart Surgery 205 MG/DL (74-106); Potassium Heart/CVR 3.8 MMOL/L (3.5-5.1)
[2021-04-28 04:06] LABS: Basophils % 0.2 % (0.0-0.8); Hematocrit 31.5 VOL% (35.7-47.0); Hemoglobin 10.6 GM/DL (12.0-16.0); Immature Granulocytes % 0.8 %; Immature Granulocytes Absolute 0.08 #; Lymphocytes # 0.5 10*3/uL (1.4-4.0); Lymphocytes % 5.5 % (21.3-54.2); Mean Corpuscular HGB Conc 33.7 GM/DL (32-36); Mean Platelet Volume 10.5 FL (9.6-12.0); Monocytes % 6.3 % (1.7-12.7); Neutrophils % 87.2 % (38.7-73.9); Platelet Count 112 T/CUMM (130-400); Red Blood Count 3.35 MC/CUMM (3.8-5.5); Red Cell Distribution Width 16.1 % (9.3-17.3); White Blood Count 9.7 T/CUMM (4-12)
[2021-04-28 04:22] LABS: Albumin 3.5 G/DL (3.4-5.0); Bilirubin,Direct 0.3 MG/DL (0.0-0.20); Bilirubin,Total 0.7 MG/DL (0.20-1.00); Calcium 8.1 MG/DL (8.5-10.1); Osmolality,Calculated 281.7 MOS/KG (273-304); Potassium 3.9 MMOL/L (3.5-5.1); Total Protein 6.7 G/DL (6.4-8.2)
[2021-04-28 04:24] LABS: Band Neutrophils 5 % (0-10); Lymphocytes 11 % (20-55); Microcytosis 1+; Ovalocytes Slight; Polychromasia Slight; Segmented Neutrophils 80 % (50-85); Total Cells Counted 100
[2021-04-28 04:25] LABS: Platelet Estimate Adequate
[2021-04-28 04:36] LABS: CKMB % 5.3 %
[2021-04-28 04:40] LABS: High Sensitive Troponin I* 44855.2 ng/L (0-54)
[2021-04-28] MEDS: MORPHINE 10 MG/1 ML VIAL IV PRN (05:01)
[2021-04-28 05:48] LABS: ABG Base Excess -1.3 MMOL/L (-2.5-2.5); ABG HCO3 23.4 MMOL/L (20-26); ABG Oxygen Saturation 98.2 % (95-100); ABG PCO2 41.6 MM HG (35-48); ABG PH 7.369 (7.35-7.45); ABG TCO2 21.7 MMOL/L (23-27); Glucose Heart Surgery 172 MG/DL (74-106); Hematocrit Heart Surgery 32.6 PERCENT (37-47); Hemoglobin Heart Surgery 10.6 G/DL (12.0-16.0)
[2021-04-28] MEDS: LEVOFLOXACIN INJ 250 MG/50 ML PREMIX IV SCH (08:46)
[2021-04-28] MEDS: CHLORHEXIDINE 0.12% ORAL RINSE 60 ML BOTTLE SWISH/SPIT SCH ×2 (08:46→21:31)
[2021-04-28] MEDS ORDERED: PANTOPRAZOLE 40 MG VIAL IV ONE (09:00)
[2021-04-28] MEDS ORDERED: ASPIRIN CHEW 81 MG TABLET PO ONE (09:00)
[2021-04-28] MEDS: INSULIN REGULAR 100 UNIT/ML SUBCUT SCH ×4 (11:48→21:30)
[2021-04-28] MEDS: SODIUM CHLOR 0.45% KCL 20 MEQ 20 MEQ/1,000 ML BAG IV SCH (11:49)
[2021-04-28] MEDS: VANCOMYCIN INJ 1,000 MG in SODIUM CHLORIDE 0.9% 250 ML IV SCH ×2 (11:49→23:15)
[2021-04-28 12:58] LABS: ABG Base Excess -4.1 MMOL/L (-2.5-2.5); ABG HCO3 21.1 MMOL/L (20-26); ABG PCO2 39.1 MM HG (35-48); ABG PO2 119.3 MM HG (80-95); ABG TCO2 22.3 MMOL/L (23-27); Glucose Heart Surgery 237 MG/DL (74-106); Potassium Heart/CVR 4.4 MMOL/L (3.5-5.1)
[2021-04-28 14:33] LABS: High Sensitive Troponin I* 35773.1 ng/L (0-54)
[2021-04-28] MEDS: DOBUTamine 500 MG/250 ML PREMIX IV PRN (22:24)
[2021-04-28 23:45] LABS: ABG Base Excess 0.1 MMOL/L (-2.5-2.5); ABG HCO3 24.5 MMOL/L (20-26); ABG PCO2 38.7 MM HG (35-48); ABG TCO2 22.2 MMOL/L (23-27); Glucose Heart Surgery 315 MG/DL (74-106); Hematocrit Heart Surgery 32.4 PERCENT (37-47); Hemoglobin Heart Surgery 10.5 G/DL (12.0-16.0); Potassium Heart/CVR 4.2 MMOL/L (3.5-5.1)
[2021-04-29] MEDS: INSULIN REGULAR 100 UNIT/ML SUBCUT SCH ×6 (02:10→21:44)
[2021-04-29 02:57] LABS: Albumin 3.1 G/DL (3.4-5.0); Bilirubin,Direct 0.21 MG/DL (0.0-0.20); Bilirubin,Total 0.6 MG/DL (0.20-1.00); Potassium 4.1 MMOL/L (3.5-5.1); Total Protein 6.2 G/DL (6.4-8.2)
[2021-04-29] MEDS ORDERED: FUROSEMIDE 40 MG/4 ML VIAL IV ONE ×2 (04:21→19:30)
[2021-04-29 06:08] LABS: Basophils % 0.1 % (0.0-0.8); Hematocrit 32.4 VOL% (35.7-47.0); Hemoglobin 10.6 GM/DL (12.0-16.0); Immature Granulocytes % 0.9 %; Immature Granulocytes Absolute 0.11 #; Lymphocytes # 0.4 10*3/uL (1.4-4.0); Lymphocytes % 2.7 % (21.3-54.2); Mean Corpuscular HGB Conc 32.7 GM/DL (32-36); Mean Platelet Volume 11.2 FL (9.6-12.0); Monocytes % 10.7 % (1.7-12.7); Neutrophils % 85.6 % (38.7-73.9); Platelet Count 142 T/CUMM (130-400); Red Blood Count 3.34 MC/CUMM (3.8-5.5); Red Cell Distribution Width 16.4 % (9.3-17.3); White Blood Count 12.9 T/CUMM (4-12)
[2021-04-29 06:12] LABS: Hypochromia 1+; Lymphocytes 3 % (20-55); Microcytosis 1+; Platelet Estimate Adequate; Segmented Neutrophils 88 % (50-85); Total Cells Counted 100
[2021-04-29 07:54] LABS: ABG Base Excess -0.2 MMOL/L (-2.5-2.5); ABG HCO3 24.3 MMOL/L (20-26); ABG Oxygen Saturation 99.2 % (95-100); ABG PCO2 42.5 MM HG (35-48); ABG PH 7.378 (7.35-7.45); ABG TCO2 22.3 MMOL/L (23-27); Glucose Heart Surgery 318 MG/DL (74-106); Hemoglobin Heart Surgery 11.7 G/DL (12.0-16.0); Potassium Heart/CVR 4.1 MMOL/L (3.5-5.1)
[2021-04-29] MEDS: INSULIN GLARGINE 100 UNIT/ML SUBCUT SCH (08:31)
[2021-04-29] MEDS: CHLORHEXIDINE 0.12% ORAL RINSE 60 ML BOTTLE SWISH/SPIT SCH ×2 (09:11→21:44)
[2021-04-29] MEDS: LEVOFLOXACIN INJ 250 MG/50 ML PREMIX IV SCH (09:27)
[2021-04-29] MEDS: SODIUM CHLOR 0.45% KCL 20 MEQ 20 MEQ/1,000 ML BAG IV SCH (10:31)
[2021-04-29] MEDS: VANCOMYCIN INJ 1,000 MG in SODIUM CHLORIDE 0.9% 250 ML IV SCH (11:54)
[2021-04-29] MEDS: MORPHINE 10 MG/1 ML VIAL IV PRN (13:41)
[2021-04-29] MEDS: BISOPROLOL 5 MG TABLET PO SCH (14:14)
[2021-04-29] MEDS: ASPIRIN EC 81 MG TABLET PO SCH (14:14)
[2021-04-29 17:46] LABS: ABG Base Excess 1.6 MMOL/L (-2.5-2.5); ABG HCO3 25.8 MMOL/L (20-26); ABG Oxygen Saturation 95.8 % (95-100); ABG PCO2 41.8 MM HG (35-48); ABG PH 7.408 (7.35-7.45); ABG PO2 80.5 MM HG (80-95); ABG TCO2 23.5 MMOL/L (23-27)
[2021-04-29] MEDS: ALBUMIN 5% 12.5 GM/250 ML VIAL IV PRN (18:12)
[2021-04-29] MEDS: KETOROLAC 30 MG/1 ML VIAL IV SCH (19:11)
[2021-04-29] MEDS ORDERED: RIVAROXABAN 20 MG TABLET PO SCH (21:00)
[2021-04-30] MEDS: INSULIN REGULAR 100 UNIT/ML SUBCUT SCH ×6 (01:37→22:17)
[2021-04-30] MEDS: KETOROLAC 30 MG/1 ML VIAL IV SCH ×4 (01:38→18:32)
[2021-04-30 03:54] LABS: ABG HCO3 25.2 MMOL/L (20-26); ABG Oxygen Saturation 93.3 % (95-100); ABG PCO2 38.9 MM HG (35-48); ABG PO2 67.7 MM HG (80-95); ABG TCO2 26.4 MMOL/L (23-27); Allen Test Positive
[2021-04-30 04:22] LABS: Basophils % 0.1 % (0.0-0.8); Hematocrit 31.1 VOL% (35.7-47.0); Hemoglobin 10.2 GM/DL (12.0-16.0); Immature Granulocytes % 0.7 %; Immature Granulocytes Absolute 0.08 #; Lymphocytes % 8.5 % (21.3-54.2); Mean Corpuscular HGB Conc 32.8 GM/DL (32-36); Mean Corpuscular Volume 95.7 FL (87-102); Mean Platelet Volume 9.9 FL (9.6-12.0); Monocytes % 11.2 % (1.7-12.7); Neutrophils % 79.5 % (38.7-73.9); Platelet Count 149 T/CUMM (130-400); Red Blood Count 3.25 MC/CUMM (3.8-5.5); Red Cell Distribution Width 15.9 % (9.3-17.3); White Blood Count 11.9 T/CUMM (4-12)
[2021-04-30 04:45] LABS: Albumin 3.1 G/DL (3.4-5.0); Bilirubin,Direct 0.21 MG/DL (0.0-0.20); Bilirubin,Total 0.6 MG/DL (0.20-1.00); Calcium 8.5 MG/DL (8.5-10.1); Osmolality,Calculated 286.5 MOS/KG (273-304); Potassium 3.6 MMOL/L (3.5-5.1); Total Protein 6.2 G/DL (6.4-8.2)
[2021-04-30] MEDS: LEVOFLOXACIN INJ 250 MG/50 ML PREMIX IV SCH (08:12)
[2021-04-30] MEDS: ASPIRIN EC 81 MG TABLET PO SCH (08:13)
[2021-04-30] MEDS: INSULIN GLARGINE 100 UNIT/ML SUBCUT SCH (08:13)
[2021-04-30] MEDS: PANTOPRAZOLE 40 MG TABLET PO SCH (08:13)
[2021-04-30] MEDS: CHLORHEXIDINE 0.12% ORAL RINSE 60 ML BOTTLE SWISH/SPIT SCH ×2 (08:34→22:18)
[2021-04-30] MEDS: GABAPENTIN 100 MG CAPSULE PO SCH ×2 (08:34→22:18)
[2021-04-30] MEDS ORDERED: BISOPROLOL 5 MG TABLET PO SCH (09:00)
[2021-04-30] MEDS: oxyCODONE/ACETAMINOPHEN 5-325 MG TABLET PO PRN (09:28)
[2021-04-30] MEDS: BISOPROLOL 5 MG TABLET PO SCH (09:46)
[2021-04-30] MEDS: SODIUM CHLOR 0.45% KCL 20 MEQ 20 MEQ/1,000 ML BAG IV SCH (12:36)
[2021-04-30] MEDS: traMADol 50 MG TABLET PO PRN ×2 (14:22→22:45)
[2021-04-30] MEDS ORDERED: HYDROmorphone 2 MG/1 ML VIAL IV ONE (15:00)
[2021-04-30] MEDS ORDERED: FUROSEMIDE 40 MG/4 ML VIAL IV ONE (18:04)
[2021-04-30] MEDS: RIVAROXABAN 20 MG TABLET PO SCH (22:18)
[2021-05-01] MEDS: INSULIN REGULAR 100 UNIT/ML SUBCUT SCH ×7 (00:44→23:28)
[2021-05-01] MEDS: KETOROLAC 30 MG/1 ML VIAL IV SCH ×4 (01:25→23:22)
[2021-05-01 04:23] LABS: Basophils % 0.1 % (0.0-0.8); Eosinophils # 0.1 10*3/uL (0.0-0.87); Eosinophils % 1.1 % (0.00-10.9); Hematocrit 31.6 VOL% (35.7-47.0); Hemoglobin 10.3 GM/DL (12.0-16.0); Immature Granulocytes % 0.8 %; Immature Granulocytes Absolute 0.09 #; Lymphocytes % 18.3 % (21.3-54.2); Mean Corpuscular HGB Conc 32.6 GM/DL (32-36); Mean Corpuscular Volume 95.2 FL (87-102); Mean Platelet Volume 10.3 FL (9.6-12.0); Monocytes % 11.9 % (1.7-12.7); Neutrophils % 67.8 % (38.7-73.9); Platelet Count 173 T/CUMM (130-400); Red Blood Count 3.32 MC/CUMM (3.8-5.5); Red Cell Distribution Width 15.6 % (9.3-17.3); White Blood Count 10.8 T/CUMM (4-12)
[2021-05-01 04:44] LABS: Calcium 8.6 MG/DL (8.5-10.1); Osmolality,Calculated 289.3 MOS/KG (273-304); Potassium 3.6 MMOL/L (3.5-5.1); Total Protein 6.2 G/DL (6.4-8.2)
[2021-05-01] MEDS: POTASSIUM CHLORIDE RIDER 20 MEQ/100 ML PREMIX IV PRN (05:30)
[2021-05-01] MEDS: ASPIRIN EC 81 MG TABLET PO SCH (08:19)
[2021-05-01] MEDS: DOCUSATE SODIUM 100 MG CAPSULE PO SCH ×2 (08:20→23:21)
[2021-05-01] MEDS: GABAPENTIN 100 MG CAPSULE PO SCH ×2 (08:20→23:21)
[2021-05-01] MEDS: PANTOPRAZOLE 40 MG TABLET PO SCH (08:20)
[2021-05-01] MEDS: CHOLECALCIFEROL 5,000 UNIT TABLET PO SCH (08:21)
[2021-05-01] MEDS: BISOPROLOL 5 MG TABLET PO SCH (08:21)
[2021-05-01] MEDS: ESCITALOPRAM 10 MG TABLET PO SCH (08:21)
[2021-05-01] MEDS: oxyCODONE/ACETAMINOPHEN 5-325 MG TABLET PO PRN ×2 (08:22→17:28)
[2021-05-01] MEDS: LEVOFLOXACIN INJ 250 MG/50 ML PREMIX IV SCH (08:30)
[2021-05-01] MEDS ORDERED: ONDANSETRON 4 MG/2 ML VIAL IV PRN (08:32)
[2021-05-01] MEDS ORDERED: MAGNESIUM HYDROXIDE SUSP 30 ML UDCUP PO PRN (08:32)
[2021-05-01] MEDS ORDERED: ALUMINUM/MAGNES/SIMETH MAX STR 30 ML UDCUP PO PRN (08:32)
[2021-05-01] MEDS ORDERED: GLUCAGON 1 MG VIAL IM PRN (08:32)
[2021-05-01] MEDS ORDERED: MAGNESIUM SULF RIDER 4 GM/100 ML PREMIX IV PRN (08:32)
[2021-05-01] MEDS ORDERED: MAGNESIUM SULF RIDER 2 GM/50 ML PREMIX IV PRN (08:32)
[2021-05-01] MEDS ORDERED: DEXTROSE 10% 250 ML BAG IV PRN (08:32)
[2021-05-01] MEDS ORDERED: ZALEPLON 5 MG CAPSULE PO PRN (08:32)
[2021-05-01] MEDS ORDERED: SODIUM CHLOR 0.45% KCL 20 MEQ 20 MEQ/1,000 ML BAG IV SCH (08:32)
[2021-05-01] MEDS ORDERED: ACETAMINOPHEN 325 MG TABLET PO PRN (08:32)
[2021-05-01] MEDS: FERROUS SULFATE 325 MG TABLET PO SCH (11:00)
[2021-05-01] MEDS: CHLORHEXIDINE 0.12% ORAL RINSE 60 ML BOTTLE SWISH/SPIT SCH ×2 (11:00→23:27)
[2021-05-01] MEDS: INSULIN GLARGINE 100 UNIT/ML SUBCUT SCH (11:53)
[2021-05-01] MEDS ORDERED: INSULIN REGULAR 100 UNIT/ML SUBCUT ONE (18:00)
[2021-05-01] MEDS: RIVAROXABAN 20 MG TABLET PO SCH (23:21)
[2021-05-01] MEDS: POLYETHYLENE GLYCOL POWDER 17 GM PACK PO SCH (23:22)
[2021-05-02] MEDS: KETOROLAC 30 MG/1 ML VIAL IV SCH ×4 (01:25→21:13)
[2021-05-02 05:38] LABS: Basophils # 0.1 10*3/uL (0.0-0.2); Basophils % 0.5 % (0.0-0.8); Eosinophils # 0.4 10*3/uL (0.0-0.87); Eosinophils % 3.3 % (0.00-10.9); Hemoglobin 11.5 GM/DL (12.0-16.0); Immature Granulocytes % 2.2 %; Lymphocytes # 2.7 10*3/uL (1.4-4.0); Lymphocytes % 19.9 % (21.3-54.2); Mean Corpuscular HGB Conc 32.9 GM/DL (32-36); Mean Corpuscular Volume 94.3 FL (87-102); Mean Platelet Volume 10.2 FL (9.6-12.0); Monocytes % 10.3 % (1.7-12.7); Neutrophils % 63.8 % (38.7-73.9); Platelet Count 233 T/CUMM (130-400); Red Blood Count 3.71 MC/CUMM (3.8-5.5); Red Cell Distribution Width 15.6 % (9.3-17.3); White Blood Count 13.4 T/CUMM (4-12)
[2021-05-02] MEDS ORDERED: FUROSEMIDE 40 MG/4 ML VIAL IV ONE (06:00)
[2021-05-02 06:07] LABS: Alanine Aminotransferase 26 U/L (13-56); Alkaline Phosphatase 66 U/L (45-117); Aspartate Amino Transferase 32 U/L (0-37); Bilirubin,Indirect 0.5 MG/DL (0.0-1.0); Blood Urea Nitrogen 45 MG/DL (7-18); Calcium 9.2 MG/DL (8.5-10.1); Carbon Dioxide 26 MMOL/L (21-32); Estimated Glom Filtration Rate 62 ML/MIN; Glucose 71 MG/DL (74-106); Osmolality,Calculated 286.5 MOS/KG (273-304); Potassium 3.9 MMOL/L (3.5-5.1); Sodium 139 MMOL/L (136-145); Total Protein 6.6 G/DL (6.4-8.2)
[2021-05-02] MEDS: CHOLECALCIFEROL 5,000 UNIT TABLET PO SCH (08:49)
[2021-05-02] MEDS: BISOPROLOL 5 MG TABLET PO SCH (08:49)
[2021-05-02] MEDS: ASPIRIN EC 81 MG TABLET PO SCH (08:49)
[2021-05-02] MEDS: PANTOPRAZOLE 40 MG TABLET PO SCH (08:50)
[2021-05-02] MEDS: GABAPENTIN 100 MG CAPSULE PO SCH ×2 (08:50→21:12)
[2021-05-02] MEDS: ESCITALOPRAM 10 MG TABLET PO SCH (08:50)
[2021-05-02] MEDS: ATORVASTATIN 40 MG TABLET PO SCH (08:50)
[2021-05-02] MEDS: DOCUSATE SODIUM 100 MG CAPSULE PO SCH ×2 (08:50→21:13)
[2021-05-02] MEDS: FERROUS SULFATE 325 MG TABLET PO SCH (08:51)
[2021-05-02] MEDS: LEVOFLOXACIN INJ 250 MG/50 ML PREMIX IV SCH (09:01)
[2021-05-02] MEDS: CHLORHEXIDINE 0.12% ORAL RINSE 60 ML BOTTLE SWISH/SPIT SCH ×2 (09:03→21:17)
[2021-05-02] MEDS: INSULIN GLARGINE 100 UNIT/ML SUBCUT SCH (09:13)
[2021-05-02] MEDS: INSULIN REGULAR 100 UNIT/ML SUBCUT SCH ×4 (09:14→21:13)
[2021-05-02] MEDS: oxyCODONE/ACETAMINOPHEN 5-325 MG TABLET PO PRN (14:07)
[2021-05-02] MEDS: POLYETHYLENE GLYCOL POWDER 17 GM PACK PO SCH (21:12)
[2021-05-02] MEDS: RIVAROXABAN 20 MG TABLET PO SCH (21:13)
[2021-05-03] MEDS: KETOROLAC 30 MG/1 ML VIAL IV SCH ×4 (00:47→21:13)
[2021-05-03 06:28] LABS: Basophils # 0.1 10*3/uL (0.0-0.2); Basophils % 0.5 % (0.0-0.8); Eosinophils # 0.5 10*3/uL (0.0-0.87); Hematocrit 32.7 VOL% (35.7-47.0); Hemoglobin 10.7 GM/DL (12.0-16.0); Immature Granulocytes % 3.5 %; Immature Granulocytes Absolute 0.45 #; Lymphocytes # 2.6 10*3/uL (1.4-4.0); Lymphocytes % 20.3 % (21.3-54.2); Mean Corpuscular HGB Conc 32.7 GM/DL (32-36); Mean Corpuscular Volume 93.4 FL (87-102); Mean Platelet Volume 10.1 FL (9.6-12.0); Monocytes % 10.3 % (1.7-12.7); Neutrophils % 61.4 % (38.7-73.9); Platelet Count 213 T/CUMM (130-400); Red Cell Distribution Width 15.5 % (9.3-17.3); White Blood Count 12.8 T/CUMM (4-12)
[2021-05-03 06:50] LABS: Calcium 8.6 MG/DL (8.5-10.1); Osmolality,Calculated 284.7 MOS/KG (273-304); Potassium 3.8 MMOL/L (3.5-5.1)
[2021-05-03 07:09] LABS: Alanine Aminotransferase 20 U/L (13-56); Albumin 2.6 G/DL (3.4-5.0); Alkaline Phosphatase 60 U/L (45-117); Aspartate Amino Transferase 21 U/L (0-37); Bilirubin,Indirect 0.9 MG/DL (0.0-1.0); Blood Urea Nitrogen 40 MG/DL (7-18); Calcium 8.6 MG/DL (8.5-10.1); Carbon Dioxide 27 MMOL/L (21-32); Estimated Glom Filtration Rate 63 ML/MIN; Glucose 71 MG/DL (74-106); Osmolality,Calculated 282.7 MOS/KG (273-304); Potassium 3.7 MMOL/L (3.5-5.1); Sodium 138 MMOL/L (136-145); Total Protein 6.1 G/DL (6.4-8.2)
[2021-05-03] MEDS ORDERED: LEVOFLOXACIN 250 MG TABLET PO SCH (09:00)
[2021-05-03] MEDS: GABAPENTIN 100 MG CAPSULE PO SCH ×2 (09:51→21:16)
[2021-05-03] MEDS: DOCUSATE SODIUM 100 MG CAPSULE PO SCH ×2 (09:51→21:18)
[2021-05-03] MEDS: BISOPROLOL 5 MG TABLET PO SCH (09:51)
[2021-05-03] MEDS: FERROUS SULFATE 325 MG TABLET PO SCH (09:52)
[2021-05-03] MEDS: PANTOPRAZOLE 40 MG TABLET PO SCH (09:52)
[2021-05-03] MEDS: ASPIRIN EC 81 MG TABLET PO SCH (09:52)
[2021-05-03] MEDS: ESCITALOPRAM 10 MG TABLET PO SCH (09:52)
[2021-05-03] MEDS: CHOLECALCIFEROL 5,000 UNIT TABLET PO SCH (09:53)
[2021-05-03] MEDS: ATORVASTATIN 40 MG TABLET PO SCH (09:53)
[2021-05-03] MEDS: INSULIN GLARGINE 100 UNIT/ML SUBCUT SCH (09:54)
[2021-05-03] MEDS: INSULIN REGULAR 100 UNIT/ML SUBCUT SCH ×4 (09:58→21:15)
[2021-05-03] MEDS: CHLORHEXIDINE 0.12% ORAL RINSE 60 ML BOTTLE SWISH/SPIT SCH ×2 (09:58→21:19)
[2021-05-03] MEDS: oxyCODONE/ACETAMINOPHEN 5-325 MG TABLET PO PRN (14:05)
[2021-05-03] MEDS: RIVAROXABAN 20 MG TABLET PO SCH (21:16)
[2021-05-03] MEDS: POLYETHYLENE GLYCOL POWDER 17 GM PACK PO SCH (21:18)
[2021-05-04] MEDS: KETOROLAC 30 MG/1 ML VIAL IV SCH ×3 (00:40→15:53)
[2021-05-04] MEDS: oxyCODONE/ACETAMINOPHEN 5-325 MG TABLET PO PRN ×2 (05:11→21:04)
[2021-05-04 05:38] LABS: Basophils % 0.3 % (0.0-0.8); Eosinophils # 0.5 10*3/uL (0.0-0.87); Eosinophils % 4.2 % (0.00-10.9); Hemoglobin 10.9 GM/DL (12.0-16.0); Immature Granulocytes % 5.1 %; Immature Granulocytes Absolute 0.64 #; Lymphocytes # 2.5 10*3/uL (1.4-4.0); Lymphocytes % 19.8 % (21.3-54.2); Mean Corpuscular Volume 93.2 FL (87-102); Mean Platelet Volume 9.7 FL (9.6-12.0); Monocytes % 11.3 % (1.7-12.7); Neutrophils % 59.3 % (38.7-73.9); Platelet Count 250 T/CUMM (130-400); Red Blood Count 3.54 MC/CUMM (3.8-5.5); Red Cell Distribution Width 15.5 % (9.3-17.3); White Blood Count 12.6 T/CUMM (4-12)
[2021-05-04 06:00] LABS: Albumin 2.5 G/DL (3.4-5.0); Calcium 8.6 MG/DL (8.5-10.1); Osmolality,Calculated 284.4 MOS/KG (273-304); Potassium 3.6 MMOL/L (3.5-5.1); Total Protein 6.2 G/DL (6.4-8.2)
[2021-05-04] MEDS: INSULIN REGULAR 100 UNIT/ML SUBCUT SCH ×4 (08:19→21:09)
[2021-05-04] MEDS: DOCUSATE SODIUM 100 MG CAPSULE PO SCH ×2 (10:37→21:05)
[2021-05-04] MEDS: CHOLECALCIFEROL 5,000 UNIT TABLET PO SCH (10:37)
[2021-05-04] MEDS: PANTOPRAZOLE 40 MG TABLET PO SCH (10:37)
[2021-05-04] MEDS: BISOPROLOL 5 MG TABLET PO SCH (10:37)
[2021-05-04] MEDS: FERROUS SULFATE 325 MG TABLET PO SCH (10:38)
[2021-05-04] MEDS: ATORVASTATIN 40 MG TABLET PO SCH (10:38)
[2021-05-04] MEDS: ESCITALOPRAM 10 MG TABLET PO SCH (10:39)
[2021-05-04] MEDS: ASPIRIN EC 81 MG TABLET PO SCH (10:39)
[2021-05-04] MEDS: GABAPENTIN 100 MG CAPSULE PO SCH ×2 (10:39→21:07)
[2021-05-04] MEDS: POTASSIUM CHLORIDE 20 MEQ TABLET PO PRN (10:40)
[2021-05-04] MEDS: INSULIN GLARGINE 100 UNIT/ML SUBCUT SCH (10:42)
[2021-05-04] MEDS: CHLORHEXIDINE 0.12% ORAL RINSE 60 ML BOTTLE SWISH/SPIT SCH ×2 (10:44→21:14)
[2021-05-04] MEDS: RIVAROXABAN 20 MG TABLET PO SCH (21:07)
[2021-05-04] MEDS: POLYETHYLENE GLYCOL POWDER 17 GM PACK PO SCH (21:10)
[2021-05-05] MEDS: oxyCODONE/ACETAMINOPHEN 5-325 MG TABLET PO PRN ×3 (02:00→21:49)
[2021-05-05 05:05] LABS: Basophils # 0.1 10*3/uL (0.0-0.2); Basophils % 1.1 % (0.0-0.8); Eosinophils # 0.6 10*3/uL (0.0-0.87); Hematocrit 31.4 VOL% (35.7-47.0); Hemoglobin 10.1 GM/DL (12.0-16.0); Immature Granulocytes % 6.6 %; Immature Granulocytes Absolute 0.75 #; Lymphocytes # 2.2 10*3/uL (1.4-4.0); Lymphocytes % 18.9 % (21.3-54.2); Mean Corpuscular HGB Conc 32.2 GM/DL (32-36); Mean Corpuscular Volume 95.2 FL (87-102); Mean Platelet Volume 9.9 FL (9.6-12.0); Monocytes % 12.7 % (1.7-12.7); NRBC # 0.02 10*3/uL; Neutrophils % 55.7 % (38.7-73.9); Platelet Count 260 T/CUMM (130-400); Red Cell Distribution Width 15.4 % (9.3-17.3); White Blood Count 11.4 T/CUMM (4-12)
[2021-05-05 05:31] LABS: Band Neutrophils 1 % (0-10); Eosinophils 6 % (0-10); Hypochromia Slight; Lymphocytes 17 % (20-55); Microcytosis Slight; Platelet Estimate Adequate; Segmented Neutrophils 66 % (50-85); Total Cells Counted 100
[2021-05-05 05:37] LABS: Alanine Aminotransferase 16 U/L (13-56); Albumin 2.3 G/DL (3.4-5.0); Alkaline Phosphatase 68 U/L (45-117); Aspartate Amino Transferase 15 U/L (0-37); Bilirubin,Indirect 1.5 MG/DL (0.0-1.0); Blood Urea Nitrogen 27 MG/DL (7-18); Calcium 8.4 MG/DL (8.5-10.1); Carbon Dioxide 28 MMOL/L (21-32); Estimated Glom Filtration Rate 82 ML/MIN; Glucose 104 MG/DL (74-106); Osmolality,Calculated 285.3 MOS/KG (273-304); Sodium 141 MMOL/L (136-145); Total Protein 5.9 G/DL (6.4-8.2)
[2021-05-05] MEDS: INSULIN REGULAR 100 UNIT/ML SUBCUT SCH ×4 (07:58→20:54)
[2021-05-05] MEDS: ESCITALOPRAM 10 MG TABLET PO SCH (09:32)
[2021-05-05] MEDS: ATORVASTATIN 40 MG TABLET PO SCH (09:32)
[2021-05-05] MEDS: ASPIRIN EC 81 MG TABLET PO SCH (09:32)
[2021-05-05] MEDS: DOCUSATE SODIUM 100 MG CAPSULE PO SCH ×2 (09:32→20:51)
[2021-05-05] MEDS: BISOPROLOL 5 MG TABLET PO SCH (09:32)
[2021-05-05] MEDS: GABAPENTIN 100 MG CAPSULE PO SCH ×2 (09:33→20:53)
[2021-05-05] MEDS: PANTOPRAZOLE 40 MG TABLET PO SCH (09:33)
[2021-05-05] MEDS: CHOLECALCIFEROL 5,000 UNIT TABLET PO SCH (09:33)
[2021-05-05] MEDS: INSULIN GLARGINE 100 UNIT/ML SUBCUT SCH (09:35)
[2021-05-05] MEDS: CHLORHEXIDINE 0.12% ORAL RINSE 60 ML BOTTLE SWISH/SPIT SCH ×2 (09:36→20:55)
[2021-05-05] MEDS: FERROUS SULFATE 325 MG TABLET PO SCH (09:36)
[2021-05-05] MEDS: RIVAROXABAN 20 MG TABLET PO SCH (20:53)
[2021-05-05] MEDS: POLYETHYLENE GLYCOL POWDER 17 GM PACK PO SCH (20:55)
[2021-05-05] MEDS: LEVOFLOXACIN INJ 500 MG/100 ML PREMIX IV SCH (23:18)
[2021-05-05] MEDS: traMADol 50 MG TABLET PO PRN (23:21)
[2021-05-06 05:18] LABS: Basophils # 0.1 10*3/uL (0.0-0.2); Basophils % 0.8 % (0.0-0.8); Eosinophils # 0.6 10*3/uL (0.0-0.87); Eosinophils % 4.9 % (0.00-10.9); Hematocrit 33.9 VOL% (35.7-47.0); Hemoglobin 10.6 GM/DL (12.0-16.0); Immature Granulocytes % 6.7 %; Immature Granulocytes Absolute 0.76 #; Lymphocytes # 1.9 10*3/uL (1.4-4.0); Lymphocytes % 16.9 % (21.3-54.2); Mean Corpuscular HGB Conc 31.3 GM/DL (32-36); Mean Platelet Volume 9.5 FL (9.6-12.0); Monocytes % 14.5 % (1.7-12.7); Neutrophils % 56.2 % (38.7-73.9); Platelet Count 295 T/CUMM (130-400); Red Blood Count 3.46 MC/CUMM (3.8-5.5); Red Cell Distribution Width 15.7 % (9.3-17.3); White Blood Count 11.3 T/CUMM (4-12)
[2021-05-06 05:46] LABS: Alanine Aminotransferase 17 U/L (13-56); Albumin 2.4 G/DL (3.4-5.0); Alkaline Phosphatase 65 U/L (45-117); Aspartate Amino Transferase 17 U/L (0-37); Bilirubin,Indirect 0.3 MG/DL (0.0-1.0); Blood Urea Nitrogen 20 MG/DL (7-18); Carbon Dioxide 30 MMOL/L (21-32); Estimated Glom Filtration Rate 83 ML/MIN; Glucose 72 MG/DL (74-106); Osmolality,Calculated 280.4 MOS/KG (273-304); Sodium 140 MMOL/L (136-145); Total Protein 6.2 G/DL (6.4-8.2)
[2021-05-06 05:53] LABS: Band Neutrophils 9 % (0-10); Eosinophils 5 % (0-10); Lymphocytes 18 % (20-55); Segmented Neutrophils 51 % (50-85); Total Cells Counted 100
[2021-05-06 05:54] LABS: Anisocytosis 2+; Macrocytosis Slight; Platelet Estimate Normal
[2021-05-06] MEDS: ESCITALOPRAM 10 MG TABLET PO SCH (08:23)
[2021-05-06] MEDS: GABAPENTIN 100 MG CAPSULE PO SCH ×2 (08:23→21:10)
[2021-05-06] MEDS: BISOPROLOL 5 MG TABLET PO SCH (08:24)
[2021-05-06] MEDS: FERROUS SULFATE 325 MG TABLET PO SCH (08:24)
[2021-05-06] MEDS: ATORVASTATIN 40 MG TABLET PO SCH (08:24)
[2021-05-06] MEDS: CHOLECALCIFEROL 5,000 UNIT TABLET PO SCH (08:24)
[2021-05-06] MEDS: oxyCODONE/ACETAMINOPHEN 5-325 MG TABLET PO PRN (08:24)
[2021-05-06] MEDS: PANTOPRAZOLE 40 MG TABLET PO SCH (08:24)
[2021-05-06] MEDS: ASPIRIN EC 81 MG TABLET PO SCH (08:24)
[2021-05-06] MEDS: DOCUSATE SODIUM 100 MG CAPSULE PO SCH ×2 (08:24→21:10)
[2021-05-06] MEDS: CHLORHEXIDINE 0.12% ORAL RINSE 60 ML BOTTLE SWISH/SPIT SCH ×2 (08:29→21:13)
[2021-05-06] MEDS: INSULIN REGULAR 100 UNIT/ML SUBCUT SCH ×4 (08:30→21:11)
[2021-05-06] MEDS: INSULIN GLARGINE 100 UNIT/ML SUBCUT SCH (08:32)
[2021-05-06] MEDS ORDERED: oxyCODONE/ACETAMINOPHEN 5-325 MG TABLET PO PRN (09:06)
[2021-05-06] MEDS ORDERED: NITROGLYCERIN SL 0.4 MG TABLET SL ONE (09:51)
[2021-05-06] MEDS ORDERED: ALUM/MAG/SIMETH/LIDO VISC 1:1 30 ML BOTTLE PO ONE (10:55)
[2021-05-06] MEDS: ISOSORBIDE MONONITRATE 30 MG TABLET PO SCH (12:16)
[2021-05-06] MEDS: KETOROLAC 30 MG/1 ML VIAL IV SCH ×3 (12:16→23:15)
[2021-05-06] MEDS: POLYETHYLENE GLYCOL POWDER 17 GM PACK PO SCH (21:10)
[2021-05-06] MEDS: traMADol 50 MG TABLET PO PRN (21:10)
[2021-05-06] MEDS: RIVAROXABAN 20 MG TABLET PO SCH (21:10)
[2021-05-06] MEDS: LEVOFLOXACIN INJ 500 MG/100 ML PREMIX IV SCH (23:15)
[2021-05-07 04:44] LABS: Basophils # 0.1 10*3/uL (0.0-0.2); Basophils % 1.3 % (0.0-0.8); Eosinophils # 0.5 10*3/uL (0.0-0.87); Eosinophils % 4.7 % (0.00-10.9); Hemoglobin 10.3 GM/DL (12.0-16.0); Immature Granulocytes % 6.2 %; Immature Granulocytes Absolute 0.67 #; Lymphocytes # 1.7 10*3/uL (1.4-4.0); Lymphocytes % 15.3 % (21.3-54.2); Mean Corpuscular HGB Conc 32.2 GM/DL (32-36); Mean Corpuscular Volume 96.1 FL (87-102); Neutrophils % 57.5 % (38.7-73.9); Platelet Count 251 T/CUMM (130-400); Red Blood Count 3.33 MC/CUMM (3.8-5.5); Red Cell Distribution Width 15.7 % (9.3-17.3); White Blood Count 10.8 T/CUMM (4-12)
[2021-05-07 05:07] LABS: Band Neutrophils 3 % (0-10); Eosinophils 2 % (0-10); Hypochromia Slight; Lymphocytes 13 % (20-55); Microcytosis 1+; Myelocytes 2 %; Promyelocytes 1 %; Segmented Neutrophils 61 % (50-85); Total Cells Counted 100
[2021-05-07] MEDS: KETOROLAC 30 MG/1 ML VIAL IV SCH ×4 (05:10→23:14)
[2021-05-07 05:40] LABS: Calcium 8.3 MG/DL (8.5-10.1); Osmolality,Calculated 284.4 MOS/KG (273-304); Potassium 4.6 MMOL/L (3.5-5.1)
[2021-05-07] MEDS: ASPIRIN EC 81 MG TABLET PO SCH (09:22)
[2021-05-07] MEDS: ATORVASTATIN 40 MG TABLET PO SCH (09:22)
[2021-05-07] MEDS: INSULIN GLARGINE 100 UNIT/ML SUBCUT SCH (09:22)
[2021-05-07] MEDS: CHOLECALCIFEROL 5,000 UNIT TABLET PO SCH (09:23)
[2021-05-07] MEDS: GABAPENTIN 100 MG CAPSULE PO SCH ×2 (09:23→20:21)
[2021-05-07] MEDS: PANTOPRAZOLE 40 MG TABLET PO SCH (09:23)
[2021-05-07] MEDS: ESCITALOPRAM 10 MG TABLET PO SCH (09:23)
[2021-05-07] MEDS: FERROUS SULFATE 325 MG TABLET PO SCH (09:23)
[2021-05-07] MEDS: BISOPROLOL 5 MG TABLET PO SCH (09:23)
[2021-05-07] MEDS: ISOSORBIDE MONONITRATE 30 MG TABLET PO SCH (09:23)
[2021-05-07] MEDS: CHLORHEXIDINE 0.12% ORAL RINSE 60 ML BOTTLE SWISH/SPIT SCH ×2 (09:41→20:21)
[2021-05-07] MEDS: INSULIN REGULAR 100 UNIT/ML SUBCUT SCH ×4 (09:41→21:55)
[2021-05-07] MEDS: DOCUSATE SODIUM 100 MG CAPSULE PO SCH ×2 (09:41→20:21)
[2021-05-07] MEDS: POLYETHYLENE GLYCOL POWDER 17 GM PACK PO SCH (20:20)
[2021-05-07] MEDS: RIVAROXABAN 20 MG TABLET PO SCH (20:21)
[2021-05-07] MEDS: traMADol 50 MG TABLET PO PRN (22:15)
[2021-05-07] MEDS: LEVOFLOXACIN INJ 500 MG/100 ML PREMIX IV SCH (22:16)
[2021-05-08 04:50] LABS: Basophils # 0.1 10*3/uL (0.0-0.2); Basophils % 0.8 % (0.0-0.8); Eosinophils # 0.6 10*3/uL (0.0-0.87); Eosinophils % 4.4 % (0.00-10.9); Hematocrit 31.3 VOL% (35.7-47.0); Hemoglobin 9.8 GM/DL (12.0-16.0); Immature Granulocytes % 5.4 %; Immature Granulocytes Absolute 0.76 #; Lymphocytes # 2.2 10*3/uL (1.4-4.0); Lymphocytes % 15.7 % (21.3-54.2); Mean Corpuscular HGB Conc 31.3 GM/DL (32-36); Mean Corpuscular Volume 98.1 FL (87-102); Mean Platelet Volume 9.5 FL (9.6-12.0); Monocytes % 12.1 % (1.7-12.7); Neutrophils % 61.6 % (38.7-73.9); Platelet Count 262 T/CUMM (130-400); Red Blood Count 3.19 MC/CUMM (3.8-5.5); Red Cell Distribution Width 15.5 % (9.3-17.3); White Blood Count 14.2 T/CUMM (4-12)
[2021-05-08 05:06] LABS: Calcium 8.8 MG/DL (8.5-10.1); Osmolality,Calculated 278.5 MOS/KG (273-304); Potassium 4.6 MMOL/L (3.5-5.1)
[2021-05-08] MEDS: KETOROLAC 30 MG/1 ML VIAL IV SCH (05:22)
[2021-05-08 05:35] LABS: Band Neutrophils 1 % (0-10); Eosinophils 8 % (0-10); Lymphocytes 12 % (20-55); Segmented Neutrophils 66 % (50-85); Total Cells Counted 100
[2021-05-08 05:36] LABS: Hypochromia Slight; Microcytosis 1+; Ovalocytes Slight
[2021-05-08 05:37] LABS: Platelet Estimate Normal
[2021-05-08] MEDS: INSULIN REGULAR 100 UNIT/ML SUBCUT SCH (09:17)
[2021-05-08] MEDS: ATORVASTATIN 40 MG TABLET PO SCH (09:19)
[2021-05-08] MEDS: BISOPROLOL 5 MG TABLET PO SCH (09:19)
[2021-05-08] MEDS: ESCITALOPRAM 10 MG TABLET PO SCH (09:19)
[2021-05-08] MEDS: INSULIN GLARGINE 100 UNIT/ML SUBCUT SCH (09:19)
[2021-05-08] MEDS: DOCUSATE SODIUM 100 MG CAPSULE PO SCH (09:19)
[2021-05-08] MEDS: ASPIRIN EC 81 MG TABLET PO SCH (09:19)
[2021-05-08] MEDS: ISOSORBIDE MONONITRATE 30 MG TABLET PO SCH (09:20)
[2021-05-08] MEDS: GABAPENTIN 100 MG CAPSULE PO SCH (09:20)
[2021-05-08] MEDS: PANTOPRAZOLE 40 MG TABLET PO SCH (09:20)
[2021-05-08] MEDS: CHOLECALCIFEROL 5,000 UNIT TABLET PO SCH (09:22)
[2021-05-08 09:26] VITALS: BP 110/55
[2021-05-08] MEDS: CHLORHEXIDINE 0.12% ORAL RINSE 60 ML BOTTLE SWISH/SPIT SCH (11:13)
[2021-05-08] MEDS: FERROUS SULFATE 325 MG TABLET PO SCH (11:13)
== END 2021-05-08 12:00 | DRG 216 ==
LOC: EDUNIT# → EDBD → N.EDINP 01:01 → N.ED 01:01 → N.EDINP 10:35 → N.TELEN 12:22 → N.CVR 04-27 11:51 → N.ICU 04-30 15:47 → N.TELES 05-01 17:43
PROVIDERS: ADMIT Family Medicine; ATTEND Family Medicine
PROC: CABGAVR (ICD-10-PCS; 2021-04-27 06:44)

== ENCOUNTER 2021-07-06 13:28 | Observation (INO) ==
[2021-07-06] MEDS ORDERED: ASPIRIN 325 MG TABLET PO STA (15:04)
[2021-07-06 15:20] LABS: Basophils # 0.1 10*3/uL (0.0-0.2); Basophils % 0.6 % (0.0-0.8); Eosinophils # 0.3 10*3/uL (0.0-0.87); Eosinophils % 1.9 % (0.00-10.9); Hematocrit 41.5 VOL% (35.7-47.0); Hemoglobin 13.7 GM/DL (12.0-16.0); Immature Granulocytes % 1.1 %; Immature Granulocytes Absolute 0.17 #; Lymphocytes # 1.9 10*3/uL (1.4-4.0); Lymphocytes % 11.5 % (21.3-54.2); Mean Corpuscular Volume 89.4 FL (87-102); Mean Platelet Volume 10.2 FL (9.6-12.0); Monocytes # 1.2 10*3/uL (0.11-0.8); Monocytes % 7.2 % (1.7-12.7); Neutrophils % 77.7 % (38.7-73.9); Platelet Count 173 T/CUMM (130-400); Red Blood Count 4.64 MC/CUMM (3.8-5.5); Red Cell Distribution Width 15.1 % (9.3-17.3); White Blood Count 16.1 T/CUMM (4-12)
[2021-07-06 15:50] LABS: Alanine Aminotransferase 34 U/L (13-56); Albumin 3.2 G/DL (3.4-5.0); Alkaline Phosphatase 89 U/L (45-117); Aspartate Amino Transferase 26 U/L (0-37); Bilirubin,Total < 0.39 MG/DL (0.20-1.00); Blood Urea Nitrogen 22 MG/DL (7-18); Carbon Dioxide 25 MMOL/L (21-32); Chloride 103 MMOL/L (98-107); Estimated Glom Filtration Rate 59 ML/MIN; Glucose 234 MG/DL (74-106); Potassium 4.1 MMOL/L (3.5-5.1); Sodium 136 MMOL/L (136-145); Total Protein 6.8 G/DL (6.4-8.2)
[2021-07-06] MEDS ORDERED: LEVOFLOXACIN 500 MG TABLET PO STA (15:57)
[2021-07-06] MEDS ORDERED: ACETAMINOPHEN 325 MG TABLET PO PRN ×2 (17:50→17:53)
[2021-07-06] MEDS ORDERED: GLUCAGON 1 MG VIAL IM PRN (17:50)
[2021-07-06] MEDS ORDERED: ONDANSETRON 4 MG/2 ML VIAL IV PRN (17:50)
[2021-07-06] MEDS ORDERED: NITROGLYCERIN SL 0.4 MG TABLET SL PRN (17:53)
[2021-07-06] MEDS ORDERED: POLYETHYLENE GLYCOL POWDER 17 GM PACK PO PRN (17:53)
[2021-07-06] MEDS ORDERED: DEXTROSE 10% 250 ML BAG IV PRN (17:56)
[2021-07-06] MEDS: LEVOFLOXACIN INJ 250 MG/50 ML PREMIX IV SCH (18:37)
[2021-07-06] MEDS: SODIUM CHLORIDE 0.45% 1,000 ML IV SCH (18:37)
[2021-07-06 19:01] LABS: Bacteria,Urine Few /HPF (Few); Protein,Urine 100 mg/dL (Negative); RBC,Urine 21 /HPF (0-4); Urine Appearance Turbid (Clear); Urine Color Light Yellow (Yellow); Urine Specific Gravity 1.025 (1.001-1.035); Urine pH 5.5 (4.5-8.0)
[2021-07-06 19:02] LABS: Bilirubin,Urine Negative (Negative); Blood, Urine Large mg/dL (Negative); Glucose,Urine (UA) Negative (Negative); Ketones,Urine Negative (Negative); Nitrite,Urine Negative (Negative); Urine Urobilinogen 0.2 eU/dL (<2.0)
[2021-07-06] MEDS: MEMANTINE 10 MG TABLET PO SCH (21:12)
[2021-07-06] MEDS: traMADol 50 MG TABLET PO PRN (21:12)
[2021-07-06] MEDS: RIVAROXABAN 20 MG TABLET PO SCH (21:12)
[2021-07-06] MEDS: MELATONIN 3 MG TABLET PO SCH (21:12)
[2021-07-06] MEDS: DOCUSATE SODIUM 100 MG CAPSULE PO SCH (21:13)
[2021-07-06] MEDS: AMITRIPTYLINE 25 MG TABLET PO SCH (21:13)
[2021-07-06] MEDS: GABAPENTIN 100 MG CAPSULE PO SCH (21:13)
[2021-07-06] MEDS: METOPROLOL TARTRATE 25 MG TABLET PO SCH (21:13)
[2021-07-06] MEDS: INSULIN GLARGINE 100 UNIT/ML SUBCUT SCH (21:13)
[2021-07-06] MEDS: MOTILIUM 10 MG PO SCH (22:55)
[2021-07-06] MEDS: INSULIN LISPRO 100 UNIT/ML SUBCUT SCH (22:55)
[2021-07-07 04:37] LABS: Basophils # 0.1 10*3/uL (0.0-0.2); Basophils % 0.6 % (0.0-0.8); Eosinophils # 0.3 10*3/uL (0.0-0.87); Eosinophils % 2.2 % (0.00-10.9); Hematocrit 39.3 VOL% (35.7-47.0); Hemoglobin 13.1 GM/DL (12.0-16.0); Immature Granulocytes % 1.4 %; Immature Granulocytes Absolute 0.17 #; Lymphocytes # 2.4 10*3/uL (1.4-4.0); Mean Corpuscular HGB Conc 33.3 GM/DL (32-36); Mean Corpuscular Volume 89.5 FL (87-102); Mean Platelet Volume 10.1 FL (9.6-12.0); Monocytes % 8.2 % (1.7-12.7); Neutrophils % 67.6 % (38.7-73.9); Platelet Count 153 T/CUMM (130-400); Red Blood Count 4.39 MC/CUMM (3.8-5.5); Red Cell Distribution Width 14.9 % (9.3-17.3)
[2021-07-07] MEDS: PANTOPRAZOLE 40 MG TABLET PO SCH (05:55)
[2021-07-07] MEDS: ESCITALOPRAM 10 MG TABLET PO SCH (08:46)
[2021-07-07] MEDS: MULTIVITAMIN (CENTRUM) TABLET PO SCH (08:46)
[2021-07-07] MEDS: GABAPENTIN 100 MG CAPSULE PO SCH ×3 (08:46→21:50)
[2021-07-07] MEDS: METOPROLOL TARTRATE 25 MG TABLET PO SCH ×2 (08:47→22:11)
[2021-07-07] MEDS: MEMANTINE 10 MG TABLET PO SCH ×2 (08:47→21:50)
[2021-07-07] MEDS: predniSONE 5 MG TABLET PO SCH (08:47)
[2021-07-07] MEDS: ASPIRIN EC 81 MG TABLET PO SCH (08:47)
[2021-07-07] MEDS: CHOLECALCIFEROL 5,000 UNIT TABLET PO SCH (08:47)
[2021-07-07] MEDS: DOCUSATE SODIUM 100 MG CAPSULE PO SCH ×2 (08:47→21:50)
[2021-07-07] MEDS: INSULIN LISPRO 100 UNIT/ML SUBCUT SCH ×7 (08:48→21:51)
[2021-07-07] MEDS: ATORVASTATIN 20 MG TABLET PO SCH (08:48)
[2021-07-07] MEDS: MOTILIUM 10 MG PO SCH ×2 (08:56→22:11)
[2021-07-07] MEDS: SODIUM CHLORIDE 0.45% 1,000 ML IV SCH ×2 (09:00→22:59)
[2021-07-07] MEDS ORDERED: PANTOPRAZOLE 40 MG TABLET PO SCH (09:00)
[2021-07-07] MEDS: traMADol 50 MG TABLET PO PRN ×2 (14:01→20:20)
[2021-07-07] MEDS: LEVOFLOXACIN INJ 250 MG/50 ML PREMIX IV SCH (17:42)
[2021-07-07] MEDS ORDERED: CYANOCOBALAMIN 1000 MCG/1 ML VIAL IM SCH (21:00)
[2021-07-07] MEDS: RIVAROXABAN 20 MG TABLET PO SCH (21:50)
[2021-07-07] MEDS: MELATONIN 3 MG TABLET PO SCH (21:50)
[2021-07-07] MEDS: AMITRIPTYLINE 25 MG TABLET PO SCH (21:50)
[2021-07-07] MEDS: INSULIN GLARGINE 100 UNIT/ML SUBCUT SCH (21:51)
[2021-07-08] MEDS: PANTOPRAZOLE 40 MG TABLET PO SCH (05:40)
[2021-07-08] MEDS: INSULIN LISPRO 100 UNIT/ML SUBCUT SCH ×2 (09:44→10:15)
[2021-07-08] MEDS ORDERED: FLUCONAZOLE 150 MG TABLET PO ONE (10:00)
[2021-07-08] MEDS: MEMANTINE 10 MG TABLET PO SCH (10:12)
[2021-07-08] MEDS: DOCUSATE SODIUM 100 MG CAPSULE PO SCH (10:12)
[2021-07-08] MEDS: MULTIVITAMIN (CENTRUM) TABLET PO SCH (10:12)
[2021-07-08] MEDS: ESCITALOPRAM 10 MG TABLET PO SCH (10:12)
[2021-07-08] MEDS: ATORVASTATIN 20 MG TABLET PO SCH (10:12)
[2021-07-08] MEDS: GABAPENTIN 100 MG CAPSULE PO SCH (10:12)
[2021-07-08] MEDS: METOPROLOL TARTRATE 25 MG TABLET PO SCH (10:13)
[2021-07-08] MEDS: predniSONE 5 MG TABLET PO SCH (10:13)
[2021-07-08] MEDS: ASPIRIN EC 81 MG TABLET PO SCH (10:13)
[2021-07-08] MEDS: CHOLECALCIFEROL 5,000 UNIT TABLET PO SCH (10:13)
[2021-07-08] MEDS: MOTILIUM 10 MG PO SCH (10:13)
[2021-07-08 12:26] VITALS: BP 126/64
[2021-07-12] MEDS ORDERED: [UNRECOGNIZED DRUG - OTHER] SUBCUT SCH (09:00)
[2021-07-12] MEDS ORDERED: SEMAGLUTIDE SUBCUT SCH (09:00)
== END 2021-07-08 12:50 | disposition home or self-care (01) ==
LOC: N.ED 13:28 → N.EDINP 13:28 → N.3E 19:11
PROVIDERS: ADMIT Family Medicine; ATTEND Family Medicine

== ENCOUNTER 2021-10-24 23:29 | Observation (INO) ==
[2021-10-24 23:51] LABS: Basophils # 0.1 10*3/uL (0.0-0.2); Basophils % 0.6 % (0.0-0.8); Eosinophils # 0.2 10*3/uL (0.0-0.87); Eosinophils % 1.7 % (0.00-10.9); Hemoglobin 13.6 GM/DL (12.0-16.0); Immature Granulocytes % 0.6 %; Immature Granulocytes Absolute 0.07 #; Lymphocytes % 17.4 % (21.3-54.2); Mean Corpuscular HGB Conc 35.8 GM/DL (32-36); Mean Corpuscular Volume 90.7 FL (87-102); Mean Platelet Volume 10.7 FL (9.6-12.0); Monocytes # 0.9 10*3/uL (0.11-0.8); Neutrophils % 71.7 % (38.7-73.9); Platelet Count 135 T/CUMM (130-400); Red Blood Count 4.19 MC/CUMM (3.8-5.5); Red Cell Distribution Width 14.2 % (9.3-17.3); White Blood Count 11.7 T/CUMM (4-12)
[2021-10-24 23:56] LABS: INR 1.1; PT Patient Result 11.8 SECS (10.1-12.1); Partial Thromboplastin Time 28.5 SECS (23.7-32.9)
[2021-10-25 01:31] LABS: Albumin 3.4 G/DL (3.4-5.0); Bilirubin,Total 0.4 MG/DL (0.20-1.00); Calcium 9.6 MG/DL (8.5-10.1); Total Protein 7.1 G/DL (6.4-8.2)
[2021-10-25] MEDS ORDERED: ACETAMINOPHEN 325 MG TABLET PO PRN (03:10)
[2021-10-25] MEDS ORDERED: ONDANSETRON 4 MG/2 ML VIAL IV PRN (03:10)
[2021-10-25] MEDS ORDERED: AMITRIPTYLINE 50 MG TABLET PO PRN (03:10)
[2021-10-25] MEDS: MORPHINE 2 MG/1 ML SYRINGE IV PRN ×3 (03:57→16:45)
[2021-10-25 05:29] LABS: Basophils # 0.1 10*3/uL (0.0-0.2); Basophils % 0.7 % (0.0-0.8); Eosinophils # 0.2 10*3/uL (0.0-0.87); Eosinophils % 2.1 % (0.00-10.9); Hematocrit 37.9 VOL% (35.7-47.0); Hemoglobin 13.4 GM/DL (12.0-16.0); Immature Granulocytes % 1.7 %; Immature Granulocytes Absolute 0.17 #; Lymphocytes # 2.3 10*3/uL (1.4-4.0); Lymphocytes % 22.4 % (21.3-54.2); Mean Corpuscular HGB Conc 35.4 GM/DL (32-36); Mean Corpuscular Volume 91.5 FL (87-102); Mean Platelet Volume 11.2 FL (9.6-12.0); Monocytes # 0.9 10*3/uL (0.11-0.8); Monocytes % 8.8 % (1.7-12.7); Neutrophils % 64.3 % (38.7-73.9); Platelet Count 121 T/CUMM (130-400); Red Blood Count 4.14 MC/CUMM (3.8-5.5); Red Cell Distribution Width 14.2 % (9.3-17.3); White Blood Count 10.2 T/CUMM (4-12)
[2021-10-25 05:49] LABS: Albumin 3.4 G/DL (3.4-5.0); Bilirubin,Total 0.4 MG/DL (0.20-1.00); Calcium 9.1 MG/DL (8.5-10.1); Osmolality,Calculated 282.7 MOS/KG (273-304); Total Protein 7.1 G/DL (6.4-8.2)
[2021-10-25] MEDS ORDERED: POLYETHYLENE GLYCOL POWDER 17 GM PACK PO PRN (08:33)
[2021-10-25] MEDS ORDERED: NITROGLYCERIN SL 0.4 MG TABLET SL PRN (08:33)
[2021-10-25] MEDS ORDERED: MOTILIUM 10 MG PO SCH (09:00)
[2021-10-25] MEDS ORDERED: INSULIN REGULAR 100 UNIT/ML SUBCUT SCH (09:00)
[2021-10-25] MEDS ORDERED: AMITRIPTYLINE 50 MG TABLET PO SCH (09:00)
[2021-10-25] MEDS ORDERED: METOPROLOL TARTRATE 25 MG TABLET PO SCH (09:00)
[2021-10-25] MEDS: ESCITALOPRAM 10 MG TABLET PO SCH (10:04)
[2021-10-25] MEDS: CHOLECALCIFEROL 5,000 UNIT TABLET PO SCH (10:04)
[2021-10-25] MEDS: METHENAMINE HIPPURATE 1 GM TABLET PO SCH ×2 (10:04→21:11)
[2021-10-25] MEDS: MULTIVITAMIN (CENTRUM) TABLET PO SCH (10:04)
[2021-10-25] MEDS: ASPIRIN EC 81 MG TABLET PO SCH (10:05)
[2021-10-25] MEDS: predniSONE 5 MG TABLET PO SCH (10:06)
[2021-10-25] MEDS: ATORVASTATIN 20 MG TABLET PO SCH (10:06)
[2021-10-25] MEDS: PANTOPRAZOLE 40 MG TABLET PO SCH (10:07)
[2021-10-25] MEDS: METOPROLOL TARTRATE 25 MG TABLET PO SCH ×2 (10:08→21:11)
[2021-10-25] MEDS: INSULIN LISPRO 100 UNIT/ML SUBCUT SCH ×2 (13:36→16:45)
[2021-10-25] MEDS ORDERED: INSULIN GLARGINE 100 UNIT/ML SUBCUT SCH (21:00)
[2021-10-25] MEDS: MELATONIN 3 MG TABLET PO SCH (21:11)
[2021-10-25] MEDS: RIVAROXABAN 20 MG TABLET PO SCH (21:11)
[2021-10-25] MEDS: INSULIN GLARGINE 100 UNIT/ML SUBCUT SCH (21:12)
[2021-10-25] MEDS: MOTILIUM 10 MG PO SCH (21:13)
[2021-10-26] MEDS: MORPHINE 2 MG/1 ML SYRINGE IV PRN ×3 (04:39→23:30)
[2021-10-26 05:06] LABS: Basophils # 0.1 10*3/uL (0.0-0.2); Basophils % 0.7 % (0.0-0.8); Eosinophils # 0.3 10*3/uL (0.0-0.87); Eosinophils % 2.3 % (0.00-10.9); Hematocrit 40.7 VOL% (35.7-47.0); Hemoglobin 14.2 GM/DL (12.0-16.0); Immature Granulocytes % 1.1 %; Immature Granulocytes Absolute 0.13 #; Lymphocytes # 3.6 10*3/uL (1.4-4.0); Lymphocytes % 29.5 % (21.3-54.2); Mean Corpuscular HGB Conc 34.9 GM/DL (32-36); Mean Corpuscular Volume 91.9 FL (87-102); Mean Platelet Volume 11.3 FL (9.6-12.0); Monocytes # 1.2 10*3/uL (0.11-0.8); Monocytes % 9.6 % (1.7-12.7); Neutrophils % 56.8 % (38.7-73.9); Platelet Count 125 T/CUMM (130-400); Red Blood Count 4.43 MC/CUMM (3.8-5.5); Red Cell Distribution Width 14.4 % (9.3-17.3); White Blood Count 12.1 T/CUMM (4-12)
[2021-10-26 05:32] LABS: Calcium 9.2 MG/DL (8.5-10.1); Osmolality,Calculated 285.3 MOS/KG (273-304); Potassium 4.2 MMOL/L (3.5-5.1)
[2021-10-26] MEDS ORDERED: MAGNESIUM SULF RIDER 2 GM/50 ML PREMIX IV PRN (07:38)
[2021-10-26] MEDS ORDERED: POTASSIUM CHLORIDE RIDER 10 MEQ/100 ML PREMIX IV PRN (07:38)
[2021-10-26] MEDS: INSULIN LISPRO 100 UNIT/ML SUBCUT SCH ×3 (07:54→16:29)
[2021-10-26] MEDS: METOPROLOL TARTRATE 25 MG TABLET PO SCH ×2 (08:46→21:20)
[2021-10-26] MEDS: ESCITALOPRAM 10 MG TABLET PO SCH (08:46)
[2021-10-26] MEDS: MULTIVITAMIN (CENTRUM) TABLET PO SCH (08:46)
[2021-10-26] MEDS: ASPIRIN EC 81 MG TABLET PO SCH (08:46)
[2021-10-26] MEDS: METHENAMINE HIPPURATE 1 GM TABLET PO SCH ×2 (08:46→21:20)
[2021-10-26] MEDS: MOTILIUM 10 MG PO SCH ×2 (08:50→23:28)
[2021-10-26] MEDS: CHOLECALCIFEROL 5,000 UNIT TABLET PO SCH (08:50)
[2021-10-26] MEDS: predniSONE 5 MG TABLET PO SCH (08:50)
[2021-10-26] MEDS: PANTOPRAZOLE 40 MG TABLET PO SCH (08:50)
[2021-10-26] MEDS: ATORVASTATIN 20 MG TABLET PO SCH (08:50)
[2021-10-26] MEDS: SODIUM CHLORIDE 0.9% 1,000 ML IV SCH ×2 (11:27→23:34)
[2021-10-26] MEDS ORDERED: diphenhydrAMINE CAP 25 MG CAPSULE PO ONE (12:30)
[2021-10-26] MEDS ORDERED: DIAZEPAM 5 MG TABLET PO ONE (12:30)
[2021-10-26] MEDS ORDERED: fentaNYL 100 MCG/2 ML VIAL ONE (13:29)
[2021-10-26] MEDS ORDERED: MIDAZOLAM 2 MG/2 ML VIAL ONE (13:29)
[2021-10-26] MEDS ORDERED: DEXTROSE 10% 250 ML BAG IV PRN (14:31)
[2021-10-26] MEDS ORDERED: GLUCAGON 1 MG VIAL IM PRN (14:31)
[2021-10-26] MEDS: CLOPIDOGREL 75 MG TABLET PO SCH (17:31)
[2021-10-26] MEDS ORDERED: AMITRIPTYLINE 50 MG TABLET PO SCH (21:00)
[2021-10-26] MEDS: MELATONIN 3 MG TABLET PO SCH (21:19)
[2021-10-26] MEDS: RIVAROXABAN 20 MG TABLET PO SCH (21:20)
[2021-10-26] MEDS: INSULIN GLARGINE 100 UNIT/ML SUBCUT SCH (22:25)
[2021-10-27 05:10] LABS: Basophils # 0.1 10*3/uL (0.0-0.2); Basophils % 0.8 % (0.0-0.8); Eosinophils # 0.3 10*3/uL (0.0-0.87); Eosinophils % 2.7 % (0.00-10.9); Hematocrit 36.9 VOL% (35.7-47.0); Hemoglobin 12.9 GM/DL (12.0-16.0); Immature Granulocytes Absolute 0.11 #; Lymphocytes # 2.7 10*3/uL (1.4-4.0); Lymphocytes % 24.1 % (21.3-54.2); Mean Corpuscular Volume 92.5 FL (87-102); Mean Platelet Volume 10.6 FL (9.6-12.0); Monocytes # 1.1 10*3/uL (0.11-0.8); Monocytes % 9.6 % (1.7-12.7); Neutrophils % 61.8 % (38.7-73.9); Platelet Count 114 T/CUMM (130-400); Red Blood Count 3.99 MC/CUMM (3.8-5.5); Red Cell Distribution Width 14.4 % (9.3-17.3); White Blood Count 11.3 T/CUMM (4-12)
[2021-10-27 05:28] LABS: Calcium 8.6 MG/DL (8.5-10.1); Osmolality,Calculated 287.1 MOS/KG (273-304); Potassium 3.7 MMOL/L (3.5-5.1)
[2021-10-27 05:57] LABS: Risk Ratio 4.9; VLDL Cholesterol 82.2 MG/DL
[2021-10-27] MEDS: SODIUM CHLORIDE 0.9% 1,000 ML IV SCH ×2 (07:26→09:18)
[2021-10-27 07:33] VITALS: BP 118/58
[2021-10-27] MEDS ORDERED: ISOSORBIDE MONONITRATE 30 MG TABLET PO SCH (09:00)
[2021-10-27] MEDS: ESCITALOPRAM 10 MG TABLET PO SCH (09:04)
[2021-10-27] MEDS: CLOPIDOGREL 75 MG TABLET PO SCH (09:04)
[2021-10-27] MEDS: PANTOPRAZOLE 40 MG TABLET PO SCH (09:04)
[2021-10-27] MEDS: ATORVASTATIN 20 MG TABLET PO SCH (09:04)
[2021-10-27] MEDS: METOPROLOL TARTRATE 25 MG TABLET PO SCH (09:05)
[2021-10-27] MEDS: CHOLECALCIFEROL 5,000 UNIT TABLET PO SCH (09:05)
[2021-10-27] MEDS: predniSONE 5 MG TABLET PO SCH (09:05)
[2021-10-27] MEDS: METHENAMINE HIPPURATE 1 GM TABLET PO SCH (09:05)
[2021-10-27] MEDS: MULTIVITAMIN (CENTRUM) TABLET PO SCH (09:05)
[2021-10-27] MEDS: INSULIN LISPRO 100 UNIT/ML SUBCUT SCH (09:07)
[2021-10-27] MEDS: MOTILIUM 10 MG PO SCH (09:16)
[2021-10-27] MEDS ORDERED: traMADol 50 MG TABLET PO PRN (09:25)
[2021-10-31] MEDS ORDERED: CYANOCOBALAMIN 1000 MCG/1 ML VIAL IM SCH (09:00)
== END 2021-10-27 10:36 | disposition home or self-care (01) ==
LOC: N.3E 23:29 → N.ED 23:29 → N.3E 10-25 04:01
PROVIDERS: ADMIT Family Medicine; ATTEND Family Medicine

== ENCOUNTER 2021-12-26 00:13 | Inpatient (IN) ==
[2021-12-26 00:55] LABS: Basophils # 0.1 10*3/uL (0.0-0.2); Basophils % 0.7 % (0.0-0.8); Eosinophils # 0.2 10*3/uL (0.0-0.87); Eosinophils % 1.7 % (0.00-10.9); Hematocrit 35.2 VOL% (35.7-47.0); Hemoglobin 12.2 GM/DL (12.0-16.0); Immature Granulocytes % 1.1 %; Lymphocytes % 22.1 % (21.3-54.2); Mean Corpuscular HGB Conc 34.7 GM/DL (32-36); Mean Corpuscular Volume 92.4 FL (87-102); Mean Platelet Volume 10.2 FL (9.6-12.0); Monocytes # 0.9 10*3/uL (0.11-0.8); Monocytes % 10.4 % (1.7-12.7); Platelet Count 164 T/CUMM (130-400); Red Blood Count 3.81 MC/CUMM (3.8-5.5); Red Cell Distribution Width 14.4 % (9.3-17.3); White Blood Count 8.8 T/CUMM (4-12)
[2021-12-26 01:10] LABS: INR 1.1; PT Patient Result 12.4 SECS (10.1-12.1); Partial Thromboplastin Time 30.9 SECS (23.7-32.9)
[2021-12-26 01:30] LABS: Alanine Aminotransferase 26 U/L (13-56); Albumin 3.3 G/DL (3.4-5.0); Alkaline Phosphatase 65 U/L (45-117); Aspartate Amino Transferase 15 U/L (0-37); Bilirubin,Total < 0.39 MG/DL (0.20-1.00); Blood Urea Nitrogen 19 MG/DL (7-18); Calcium 8.8 MG/DL (8.5-10.1); Carbon Dioxide 26 MMOL/L (21-32); Chloride 106 MMOL/L (98-107); Glucose 342 MG/DL (74-106); Osmolality,Calculated 294.4 MOS/KG (273-304); Potassium 3.8 MMOL/L (3.5-5.1); Sodium 140 MMOL/L (136-145); Total Protein 6.3 G/DL (6.4-8.2)
[2021-12-26] MEDS ORDERED: INSULIN REGULAR 100 UNIT/ML SUBCUT STA (01:49)
[2021-12-26] MEDS ORDERED: ONDANSETRON 4 MG/2 ML VIAL IV PRN (07:19)
[2021-12-26] MEDS ORDERED: POLYETHYLENE GLYCOL POWDER 17 GM PACK PO PRN (07:23)
[2021-12-26] MEDS: SODIUM CHLORIDE 0.9% 1,000 ML IV SCH (08:00)
[2021-12-26] MEDS: INSULIN LISPRO 100 UNIT/ML SUBCUT SCH ×4 (08:27→21:27)
[2021-12-26] MEDS: METHENAMINE HIPPURATE 1 GM TABLET PO SCH ×2 (13:38→21:26)
[2021-12-26] MEDS: DOCUSATE SODIUM 100 MG CAPSULE PO SCH ×2 (13:38→21:24)
[2021-12-26] MEDS: ESCITALOPRAM 10 MG TABLET PO SCH (13:39)
[2021-12-26] MEDS: METOPROLOL TARTRATE 25 MG TABLET PO SCH ×2 (13:39→21:29)
[2021-12-26] MEDS: RANOLAZINE 500 MG TABLET PO SCH ×2 (13:39→21:32)
[2021-12-26] MEDS: CLOPIDOGREL 75 MG TABLET PO SCH (13:39)
[2021-12-26] MEDS: PANTOPRAZOLE 40 MG TABLET PO SCH (13:39)
[2021-12-26] MEDS: predniSONE 5 MG TABLET PO SCH (13:39)
[2021-12-26] MEDS: traMADol 50 MG TABLET PO PRN ×2 (13:51→23:50)
[2021-12-26] MEDS ORDERED: MORPHINE 2 MG/1 ML SYRINGE IV ONE (16:09)
[2021-12-26] MEDS: NITROGLYCERIN SL 0.4 MG TABLET SL PRN (18:14)
[2021-12-26] MEDS ORDERED: ISOSORBIDE MONONITRATE 30 MG TABLET PO SCH (21:00)
[2021-12-26] MEDS: ROSUVASTATIN 20 MG TABLET PO SCH (21:24)
[2021-12-26] MEDS: MELATONIN 3 MG TABLET PO SCH (21:25)
[2021-12-26] MEDS: AMITRIPTYLINE 50 MG TABLET PO SCH (21:26)
[2021-12-26] MEDS: RIVAROXABAN 20 MG TABLET PO SCH (21:26)
[2021-12-26] MEDS: INSULIN GLARGINE 100 UNIT/ML SUBCUT SCH (21:26)
[2021-12-27] MEDS: ACETAMINOPHEN 325 MG TABLET PO PRN (01:01)
[2021-12-27 06:06] LABS: Calcium 6.7 MG/DL (8.5-10.1); Osmolality,Calculated 293.3 MOS/KG (273-304); Potassium 3.1 MMOL/L (3.5-5.1)
[2021-12-27 07:07] LABS: Basophils # 0.1 10*3/uL (0.0-0.2); Basophils % 0.7 % (0.0-0.8); Eosinophils # 0.3 10*3/uL (0.0-0.87); Hematocrit 35.1 VOL% (35.7-47.0); Hemoglobin 12.1 GM/DL (12.0-16.0); Immature Granulocytes % 0.9 %; Immature Granulocytes Absolute 0.08 #; Lymphocytes # 2.2 10*3/uL (1.4-4.0); Lymphocytes % 24.6 % (21.3-54.2); Mean Corpuscular HGB Conc 34.5 GM/DL (32-36); Mean Corpuscular Volume 94.9 FL (87-102); Monocytes # 1.2 10*3/uL (0.11-0.8); Monocytes % 13.9 % (1.7-12.7); Neutrophils % 56.9 % (38.7-73.9); Platelet Count 147 T/CUMM (130-400); Red Cell Distribution Width 14.6 % (9.3-17.3)
[2021-12-27] MEDS: predniSONE 5 MG TABLET PO SCH (09:00)
[2021-12-27] MEDS: PANTOPRAZOLE 40 MG TABLET PO SCH (09:01)
[2021-12-27] MEDS: POTASSIUM CHLORIDE 20 MEQ TABLET PO SCH (09:01)
[2021-12-27] MEDS: DOCUSATE SODIUM 100 MG CAPSULE PO SCH ×2 (09:01→22:02)
[2021-12-27] MEDS: CLOPIDOGREL 75 MG TABLET PO SCH (09:01)
[2021-12-27] MEDS: METOPROLOL TARTRATE 25 MG TABLET PO SCH ×2 (09:01→21:59)
[2021-12-27] MEDS: RANOLAZINE 500 MG TABLET PO SCH ×2 (09:01→22:02)
[2021-12-27] MEDS: ESCITALOPRAM 10 MG TABLET PO SCH (09:03)
[2021-12-27] MEDS: METHENAMINE HIPPURATE 1 GM TABLET PO SCH ×2 (09:10→22:02)
[2021-12-27] MEDS: INSULIN LISPRO 100 UNIT/ML SUBCUT SCH ×3 (09:10→16:05)
[2021-12-27] MEDS: NITROGLYCERIN SL 0.4 MG TABLET SL PRN ×2 (09:40→09:55)
[2021-12-27] MEDS: SODIUM CHLORIDE 0.9% 1,000 ML IV SCH ×2 (10:00→10:01)
[2021-12-27] MEDS: NITROGLYCERIN 2% OINT 1 INCH/GM PACK TOP SCH ×2 (10:50→15:45)
[2021-12-27] MEDS: traMADol 50 MG TABLET PO SCH ×2 (10:51→22:01)
[2021-12-27] MEDS: MORPHINE 2 MG/1 ML SYRINGE IV PRN ×3 (10:54→22:05)
[2021-12-27] MEDS: MELATONIN 3 MG TABLET PO SCH (21:58)
[2021-12-27] MEDS: AMITRIPTYLINE 50 MG TABLET PO SCH (21:59)
[2021-12-27] MEDS: RIVAROXABAN 20 MG TABLET PO SCH (21:59)
[2021-12-27] MEDS: ROSUVASTATIN 20 MG TABLET PO SCH (22:02)
[2021-12-27] MEDS: INSULIN GLARGINE 100 UNIT/ML SUBCUT SCH (22:04)
[2021-12-28] MEDS: INSULIN LISPRO 100 UNIT/ML SUBCUT SCH ×5 (02:34→23:12)
[2021-12-28] MEDS: NITROGLYCERIN 2% OINT 1 INCH/GM PACK TOP SCH ×2 (02:37→08:18)
[2021-12-28 05:57] LABS: Basophils # 0.1 10*3/uL (0.0-0.2); Basophils % 0.8 % (0.0-0.8); Eosinophils # 0.2 10*3/uL (0.0-0.87); Eosinophils % 2.9 % (0.00-10.9); Hematocrit 24.9 VOL% (35.7-47.0); Hemoglobin 8.1 GM/DL (12.0-16.0); Immature Granulocytes Absolute 0.06 #; Lymphocytes # 1.6 10*3/uL (1.4-4.0); Lymphocytes % 27.3 % (21.3-54.2); Mean Corpuscular HGB Conc 32.5 GM/DL (32-36); Mean Corpuscular Volume 97.6 FL (87-102); Mean Platelet Volume 10.2 FL (9.6-12.0); Monocytes # 0.9 10*3/uL (0.11-0.8); Monocytes % 15.4 % (1.7-12.7); Neutrophils % 52.6 % (38.7-73.9); Platelet Count 94 T/CUMM (130-400); Red Blood Count 2.55 MC/CUMM (3.8-5.5); Red Cell Distribution Width 14.6 % (9.3-17.3); White Blood Count 5.9 T/CUMM (4-12)
[2021-12-28 06:21] LABS: Hypochromia Slight; Microcytosis Slight; Platelet Estimate Decreased
[2021-12-28 06:53] LABS: Potassium 2.9 MMOL/L (3.5-5.1)
[2021-12-28 06:55] LABS: Calcium 5.6 MG/DL (8.5-10.1)
[2021-12-28 07:52] LABS: Hematocrit 39.4 VOL% (35.7-47.0); Hemoglobin 13.3 GM/DL (12.0-16.0)
[2021-12-28] MEDS: METHENAMINE HIPPURATE 1 GM TABLET PO SCH ×2 (08:38→23:19)
[2021-12-28] MEDS: ESCITALOPRAM 10 MG TABLET PO SCH (08:39)
[2021-12-28] MEDS: traMADol 50 MG TABLET PO SCH ×2 (08:39→23:21)
[2021-12-28] MEDS: PANTOPRAZOLE 40 MG TABLET PO SCH (08:39)
[2021-12-28] MEDS: CLOPIDOGREL 75 MG TABLET PO SCH (08:39)
[2021-12-28] MEDS: DOCUSATE SODIUM 100 MG CAPSULE PO SCH ×2 (08:39→23:19)
[2021-12-28] MEDS: RANOLAZINE 500 MG TABLET PO SCH ×2 (08:39→23:11)
[2021-12-28] MEDS: METOPROLOL TARTRATE 25 MG TABLET PO SCH ×2 (08:39→23:11)
[2021-12-28] MEDS: POTASSIUM CHLORIDE 20 MEQ TABLET PO SCH (08:39)
[2021-12-28] MEDS: SODIUM CHLORIDE 0.9% 1,000 ML IV SCH (08:40)
[2021-12-28] MEDS: predniSONE 5 MG TABLET PO SCH (08:40)
[2021-12-28 08:46] LABS: Calcium 8.8 MG/DL (8.5-10.1); Osmolality,Calculated 280.4 MOS/KG (273-304); Potassium 4.2 MMOL/L (3.5-5.1)
[2021-12-28] MEDS ORDERED: NITROGLYCERIN 2% OINT 1 INCH/GM PACK TOP ONE (10:10)
[2021-12-28] MEDS: MORPHINE 2 MG/1 ML SYRINGE IV PRN (11:13)
[2021-12-28] MEDS: AMITRIPTYLINE 50 MG TABLET PO SCH (23:11)
[2021-12-28] MEDS: INSULIN GLARGINE 100 UNIT/ML SUBCUT SCH (23:12)
[2021-12-28] MEDS: ROSUVASTATIN 20 MG TABLET PO SCH (23:19)
[2021-12-28] MEDS: MELATONIN 3 MG TABLET PO SCH (23:19)
[2021-12-28] MEDS: RIVAROXABAN 20 MG TABLET PO SCH (23:22)
[2021-12-29 05:43] LABS: Basophils # 0.1 10*3/uL (0.0-0.2); Basophils % 0.8 % (0.0-0.8); Eosinophils # 0.3 10*3/uL (0.0-0.87); Eosinophils % 3.5 % (0.00-10.9); Hematocrit 36.1 VOL% (35.7-47.0); Hemoglobin 12.2 GM/DL (12.0-16.0); Immature Granulocytes % 0.9 %; Immature Granulocytes Absolute 0.07 #; Lymphocytes # 2.6 10*3/uL (1.4-4.0); Lymphocytes % 33.8 % (21.3-54.2); Mean Corpuscular HGB Conc 33.8 GM/DL (32-36); Monocytes % 13.2 % (1.7-12.7); Neutrophils % 47.8 % (38.7-73.9); Platelet Count 137 T/CUMM (130-400); Red Blood Count 3.76 MC/CUMM (3.8-5.5); Red Cell Distribution Width 14.6 % (9.3-17.3); White Blood Count 7.8 T/CUMM (4-12)
[2021-12-29 05:58] LABS: Calcium 8.9 MG/DL (8.5-10.1); Osmolality,Calculated 286.8 MOS/KG (273-304); Potassium 3.9 MMOL/L (3.5-5.1)
[2021-12-29 06:07] LABS: Risk Ratio 2.74; VLDL Cholesterol 36.8 MG/DL
[2021-12-29] MEDS: METHENAMINE HIPPURATE 1 GM TABLET PO SCH ×2 (09:53→21:17)
[2021-12-29] MEDS: METOPROLOL TARTRATE 25 MG TABLET PO SCH ×2 (09:53→21:18)
[2021-12-29] MEDS: DOCUSATE SODIUM 100 MG CAPSULE PO SCH ×2 (09:53→21:17)
[2021-12-29] MEDS: POTASSIUM CHLORIDE 20 MEQ TABLET PO SCH (09:53)
[2021-12-29] MEDS: PANTOPRAZOLE 40 MG TABLET PO SCH (09:54)
[2021-12-29] MEDS: CLOPIDOGREL 75 MG TABLET PO SCH (09:54)
[2021-12-29] MEDS: traMADol 50 MG TABLET PO SCH ×2 (09:54→21:17)
[2021-12-29] MEDS: predniSONE 5 MG TABLET PO SCH (09:54)
[2021-12-29] MEDS: ESCITALOPRAM 10 MG TABLET PO SCH (09:55)
[2021-12-29] MEDS: RANOLAZINE 500 MG TABLET PO SCH ×2 (09:56→21:16)
[2021-12-29] MEDS: INSULIN LISPRO 100 UNIT/ML SUBCUT SCH ×4 (09:58→21:18)
[2021-12-29] MEDS: ACETAMINOPHEN 325 MG TABLET PO PRN (15:16)
[2021-12-29] MEDS: SODIUM CHLORIDE 0.9% 1,000 ML IV SCH ×3 (17:00→23:21)
[2021-12-29] MEDS: MELATONIN 3 MG TABLET PO SCH (21:16)
[2021-12-29] MEDS: ISOSORBIDE MONONITRATE 60 MG TABLET PO SCH (21:17)
[2021-12-29] MEDS: ROSUVASTATIN 20 MG TABLET PO SCH (21:17)
[2021-12-29] MEDS: AMITRIPTYLINE 50 MG TABLET PO SCH (21:18)
[2021-12-29] MEDS: INSULIN GLARGINE 100 UNIT/ML SUBCUT SCH (21:18)
[2021-12-29] MEDS: RIVAROXABAN 20 MG TABLET PO SCH (21:26)
[2021-12-30 05:36] LABS: Basophils # 0.1 10*3/uL (0.0-0.2); Basophils % 0.9 % (0.0-0.8); Eosinophils # 0.2 10*3/uL (0.0-0.87); Eosinophils % 3.7 % (0.00-10.9); Hematocrit 26.8 VOL% (35.7-47.0); Hemoglobin 8.8 GM/DL (12.0-16.0); Immature Granulocytes % 1.1 %; Immature Granulocytes Absolute 0.07 #; Lymphocytes # 2.2 10*3/uL (1.4-4.0); Lymphocytes % 34.5 % (21.3-54.2); Mean Corpuscular HGB Conc 32.8 GM/DL (32-36); Mean Corpuscular Volume 98.5 FL (87-102); Mean Platelet Volume 10.4 FL (9.6-12.0); Monocytes # 0.7 10*3/uL (0.11-0.8); Monocytes % 11.4 % (1.7-12.7); Neutrophils % 48.4 % (38.7-73.9); Platelet Count 108 T/CUMM (130-400); Red Blood Count 2.72 MC/CUMM (3.8-5.5); Red Cell Distribution Width 14.6 % (9.3-17.3); White Blood Count 6.5 T/CUMM (4-12)
[2021-12-30 06:03] LABS: Potassium 2.5 MMOL/L (3.5-5.1)
[2021-12-30] MEDS ORDERED: POTASSIUM CHLORIDE 20 MEQ TABLET PO ONE (06:18)
[2021-12-30] MEDS ORDERED: MAGNESIUM SULF RIDER 2 GM/50 ML PREMIX IV PRN (06:42)
[2021-12-30] MEDS ORDERED: MAGNESIUM SULF RIDER 4 GM/100 ML PREMIX IV PRN (06:42)
[2021-12-30 07:29] LABS: Basophils # 0.1 10*3/uL (0.0-0.2); Basophils % 0.7 % (0.0-0.8); Eosinophils # 0.3 10*3/uL (0.0-0.87); Eosinophils % 3.2 % (0.00-10.9); Hematocrit 35.9 VOL% (35.7-47.0); Hemoglobin 11.9 GM/DL (12.0-16.0); Immature Granulocytes % 0.7 %; Immature Granulocytes Absolute 0.07 #; Lymphocytes # 3.2 10*3/uL (1.4-4.0); Lymphocytes % 33.9 % (21.3-54.2); Mean Corpuscular HGB Conc 33.1 GM/DL (32-36); Mean Corpuscular Volume 95.5 FL (87-102); Mean Platelet Volume 10.2 FL (9.6-12.0); Monocytes # 1.1 10*3/uL (0.11-0.8); Monocytes % 11.4 % (1.7-12.7); Neutrophils % 50.1 % (38.7-73.9); Platelet Count 146 T/CUMM (130-400); Red Blood Count 3.76 MC/CUMM (3.8-5.5); Red Cell Distribution Width 14.6 % (9.3-17.3); White Blood Count 9.4 T/CUMM (4-12)
[2021-12-30 07:47] LABS: Calcium 8.8 MG/DL (8.5-10.1); Osmolality,Calculated 282.3 MOS/KG (273-304); Potassium 4.3 MMOL/L (3.5-5.1)
[2021-12-30] MEDS ORDERED: CALCIUM (CARBONATE) 500 MG TABLET PO SCH (09:00)
[2021-12-30] MEDS: ISOSORBIDE MONONITRATE 60 MG TABLET PO SCH (12:09)
[2021-12-30] MEDS: RANOLAZINE 500 MG TABLET PO SCH (12:09)
[2021-12-30] MEDS: METHENAMINE HIPPURATE 1 GM TABLET PO SCH (12:09)
[2021-12-30] MEDS: POTASSIUM CHLORIDE 20 MEQ TABLET PO SCH (12:09)
[2021-12-30] MEDS: METOPROLOL TARTRATE 25 MG TABLET PO SCH (12:09)
[2021-12-30] MEDS: PANTOPRAZOLE 40 MG TABLET PO SCH (12:09)
[2021-12-30] MEDS: DOCUSATE SODIUM 100 MG CAPSULE PO SCH (12:09)
[2021-12-30] MEDS: CLOPIDOGREL 75 MG TABLET PO SCH (12:10)
[2021-12-30] MEDS: predniSONE 5 MG TABLET PO SCH (12:10)
[2021-12-30] MEDS: traMADol 50 MG TABLET PO SCH (12:10)
[2021-12-30 16:53] VITALS: BP 92/40
[2021-12-30] MEDS: INSULIN LISPRO 100 UNIT/ML SUBCUT SCH (19:54)
[2021-12-30] MEDS ORDERED: INSULIN GLARGINE 100 UNIT/ML SUBCUT SCH (21:00)
== END 2021-12-30 17:30 | disposition home or self-care (01) | DRG 281 ==
LOC: EDUNIT# → EDBD → N.ED 00:13 → N.EDINP 02:00 → N.TELEN 15:16
PROVIDERS: ADMIT Family Medicine; ATTEND Family Medicine

== ENCOUNTER 2022-02-22 08:49 | Observation (INO) ==
[2022-02-22 09:03] LABS: Basophils # 0.1 10*3/uL (0.0-0.2); Basophils % 0.7 % (0.0-0.8); Eosinophils # 0.3 10*3/uL (0.0-0.87); Eosinophils % 3.6 % (0.00-10.9); Hematocrit 30.9 VOL% (35.7-47.0); Immature Granulocytes % 1.3 %; Immature Granulocytes Absolute 0.11 #; Lymphocytes # 2.3 10*3/uL (1.4-4.0); Lymphocytes % 25.8 % (21.3-54.2); Mean Corpuscular HGB Conc 32.4 GM/DL (32-36); Mean Corpuscular Volume 93.1 FL (87-102); Mean Platelet Volume 9.9 FL (9.6-12.0); Monocytes % 11.6 % (1.7-12.7); Platelet Count 147 T/CUMM (130-400); Red Blood Count 3.32 MC/CUMM (3.8-5.5); Red Cell Distribution Width 14.9 % (9.3-17.3); White Blood Count 8.8 T/CUMM (4-12)
[2022-02-22 09:28] LABS: Albumin 2.9 G/DL (3.4-5.0); Bilirubin,Total 0.4 MG/DL (0.20-1.00); Osmolality,Calculated 281.4 MOS/KG (273-304)
[2022-02-22] MEDS ORDERED: levETIRAcetam 500 MG/5 ML VIAL IV STA (09:48)
[2022-02-22] MEDS ORDERED: LORazepam 1 MG TABLET ONE (12:32)
[2022-02-22] MEDS ORDERED: LORazepam 1 MG TABLET PO STA (12:36)
[2022-02-22] MEDS ORDERED: ACETAMINOPHEN 325 MG TABLET PO PRN ×2 (14:13→15:57)
[2022-02-22] MEDS ORDERED: ONDANSETRON 4 MG/2 ML VIAL IV PRN ×2 (14:13→15:57)
[2022-02-22] MEDS ORDERED: NITROGLYCERIN SL 0.4 MG TABLET SL PRN (14:16)
[2022-02-22] MEDS ORDERED: POLYETHYLENE GLYCOL POWDER 17 GM PACK PO PRN (14:16)
[2022-02-22] MEDS ORDERED: SODIUM CHLORIDE 0.45% 1,000 ML IV SCH (14:30)
[2022-02-22] MEDS ORDERED: DEXTROSE 10% 250 ML BAG IV PRN (15:57)
[2022-02-22] MEDS ORDERED: GLUCAGON 1 MG VIAL IM PRN (15:57)
[2022-02-22] MEDS: INSULIN LISPRO 100 UNIT/ML SUBCUT SCH ×3 (16:03→21:59)
[2022-02-22] MEDS: SODIUM CHLORIDE 0.9% 1,000 ML IV SCH (16:19)
[2022-02-22] MEDS ORDERED: METOPROLOL TARTRATE 25 MG TABLET PO SCH (21:00)
[2022-02-22] MEDS ORDERED: traMADol 50 MG TABLET PO SCH (21:00)
[2022-02-22] MEDS ORDERED: PANTOPRAZOLE 40 MG TABLET PO SCH (21:00)
[2022-02-22] MEDS ORDERED: AMITRIPTYLINE 50 MG TABLET PO SCH (21:00)
[2022-02-22] MEDS ORDERED: RIVAROXABAN 20 MG TABLET PO SCH (21:00)
[2022-02-22] MEDS ORDERED: ROSUVASTATIN 20 MG TABLET PO SCH (21:00)
[2022-02-22] MEDS ORDERED: RANOLAZINE 500 MG TABLET PO SCH (21:00)
[2022-02-22] MEDS ORDERED: MELATONIN 3 MG TABLET PO SCH (21:00)
[2022-02-22] MEDS ORDERED: DOCUSATE SODIUM 100 MG CAPSULE PO SCH (21:00)
[2022-02-22] MEDS ORDERED: ISOSORBIDE MONONITRATE 60 MG TABLET PO SCH (21:00)
[2022-02-22] MEDS ORDERED: METHENAMINE HIPPURATE 1 GM TABLET PO SCH (21:00)
[2022-02-22] MEDS ORDERED: MORPHINE 2 MG/1 ML SYRINGE IV PRN (21:54)
[2022-02-22] MEDS: DOCUSATE SODIUM 100 MG CAPSULE PO SCH (22:00)
[2022-02-22] MEDS: INSULIN GLARGINE 100 UNIT/ML SUBCUT SCH (22:01)
[2022-02-23] MEDS: INSULIN LISPRO 100 UNIT/ML SUBCUT SCH ×7 (08:05→20:14)
[2022-02-23] MEDS ORDERED: CHOLECALCIFEROL 5,000 UNIT TABLET PO SCH (09:00)
[2022-02-23] MEDS ORDERED: MULTIVITAMIN (CENTRUM) TABLET PO SCH (09:00)
[2022-02-23] MEDS ORDERED: predniSONE 5 MG TABLET PO SCH (09:00)
[2022-02-23] MEDS ORDERED: NON-FORMULARY MEDICATION (Semaglutide [Ozempic] 0.25 mg or 0.5 mg(2 mg/1.5 mL) Pen Injecto SUBCUT SCH (09:00)
[2022-02-23] MEDS ORDERED: CLOPIDOGREL 75 MG TABLET PO SCH (09:00)
[2022-02-23] MEDS ORDERED: ESCITALOPRAM 10 MG TABLET PO SCH (09:00)
[2022-02-23] MEDS ORDERED: PANTOPRAZOLE 40 MG TABLET PO SCH (09:00)
[2022-02-23] MEDS: SODIUM CHLORIDE 0.9% 1,000 ML IV SCH (11:20)
[2022-02-23] MEDS: PANTOPRAZOLE 40 MG TABLET PO SCH (11:32)
[2022-02-23] MEDS: DOCUSATE SODIUM 100 MG CAPSULE PO SCH ×2 (11:32→20:50)
[2022-02-23] MEDS: INSULIN GLARGINE 100 UNIT/ML SUBCUT SCH (20:14)
[2022-02-23] MEDS ORDERED: RIVAROXABAN 20 MG TABLET PO SCH (21:00)
[2022-02-24] MEDS: INSULIN LISPRO 100 UNIT/ML SUBCUT SCH ×4 (08:56→11:49)
[2022-02-24] MEDS: SODIUM CHLORIDE 0.9% 1,000 ML IV SCH (08:58)
[2022-02-24] MEDS: DOCUSATE SODIUM 100 MG CAPSULE PO SCH (08:59)
[2022-02-24] MEDS: PANTOPRAZOLE 40 MG TABLET PO SCH (08:59)
[2022-02-24] MEDS ORDERED: CLOPIDOGREL 75 MG TABLET PO SCH (09:00)
[2022-02-24 11:42] VITALS: BP 112/72
[2022-03-02] MEDS ORDERED: CYANOCOBALAMIN 1000 MCG/1 ML VIAL IM SCH (09:00)
== END 2022-02-24 15:42 | disposition home health service (06) ==
LOC: N.ED 08:49 → N.EDINP 08:49 → N.TELES 15:10
PROVIDERS: ADMIT Family Medicine; ATTEND Family Medicine

== ENCOUNTER 2022-03-08 12:04 | Inpatient (IN) ==
[2022-03-08] MEDS ORDERED: levETIRAcetam 500 MG/5 ML VIAL IV STA (12:11)
[2022-03-08 12:31] LABS: Basophils % 0.4 % (0.0-0.8); Eosinophils # 0.2 10*3/uL (0.0-0.87); Hematocrit 35.3 VOL% (35.7-47.0); Hemoglobin 11.7 GM/DL (12.0-16.0); Immature Granulocytes % 0.7 %; Immature Granulocytes Absolute 0.07 #; Lymphocytes # 1.3 10*3/uL (1.4-4.0); Lymphocytes % 12.9 % (21.3-54.2); Mean Corpuscular HGB Conc 33.1 GM/DL (32-36); Mean Corpuscular Volume 87.4 FL (87-102); Mean Platelet Volume 9.9 FL (9.6-12.0); Monocytes % 10.1 % (1.7-12.7); Neutrophils % 73.9 % (38.7-73.9); Platelet Count 167 T/CUMM (130-400); Red Blood Count 4.04 MC/CUMM (3.8-5.5); Red Cell Distribution Width 14.3 % (9.3-17.3); White Blood Count 9.8 T/CUMM (4-12)
[2022-03-08 12:40] LABS: INR 1.3; PT Patient Result 14.2 SECS (10.1-12.1)
[2022-03-08 13:00] LABS: Albumin 3.5 G/DL (3.4-5.0); Bilirubin,Total 0.5 MG/DL (0.20-1.00); Calcium 8.8 MG/DL (8.5-10.1); Osmolality,Calculated 283.8 MOS/KG (273-304); Potassium 3.8 MMOL/L (3.5-5.1); Total Protein 7.3 G/DL (6.4-8.2)
[2022-03-08 13:22] LABS: Bacteria,Urine Many /HPF (Few); RBC,Urine 35-40 /HPF (0-4)
[2022-03-08 13:28] LABS: Protein,Urine >=300 mg/dL (Negative); Urine Appearance Turbid (Clear); Urine Color Yellow (Yellow); Urine Specific Gravity > 1.030 (1.001-1.035)
[2022-03-08 13:29] LABS: Bilirubin,Urine Small mg/dL (Negative); Blood, Urine Large mg/dL (Negative); Glucose,Urine (UA) 100 mg/dL (Negative); Ketones,Urine Trace mg/dL (Negative); Nitrite,Urine Negative (Negative); Urine Urobilinogen 0.2 eU/dL (<2.0)
[2022-03-08] MEDS ORDERED: LEVOFLOXACIN INJ 500 MG/100 ML PREMIX IV STA (14:02)
[2022-03-08] MEDS ORDERED: ACETAMINOPHEN 325 MG TABLET PO PRN (14:10)
[2022-03-08] MEDS ORDERED: ONDANSETRON 4 MG/2 ML VIAL IV PRN (14:10)
[2022-03-08] MEDS ORDERED: PHENYTOIN ER 100 MG CAPSULE PO ONE (19:48)
[2022-03-08] MEDS ORDERED: POLYETHYLENE GLYCOL POWDER 17 GM PACK PO PRN (19:48)
[2022-03-08] MEDS ORDERED: NITROGLYCERIN SL 0.4 MG TABLET SL PRN (19:48)
[2022-03-08] MEDS ORDERED: BACLOFEN 10 MG TABLET PO PRN (19:55)
[2022-03-08] MEDS ORDERED: INSULIN REGULAR 100 UNIT/ML SUBCUT SCH (21:00)
[2022-03-08] MEDS: DOCUSATE SODIUM 100 MG CAPSULE PO SCH (22:05)
[2022-03-08] MEDS: ROSUVASTATIN 20 MG TABLET PO SCH (22:05)
[2022-03-08] MEDS: METOPROLOL TARTRATE 25 MG TABLET PO SCH (22:05)
[2022-03-08] MEDS: RIVAROXABAN 20 MG TABLET PO SCH (22:06)
[2022-03-08] MEDS: traMADol 50 MG TABLET PO SCH (22:06)
[2022-03-08] MEDS: MELATONIN 3 MG TABLET PO SCH (22:06)
[2022-03-08] MEDS: INSULIN REGULAR 100 UNIT/ML SUBCUT SCH (22:14)
[2022-03-08] MEDS ORDERED: PHENYTOIN IV ONE (22:30)
[2022-03-08] MEDS ORDERED: SODIUM CHLORIDE 0.9% IV ONE (22:30)
[2022-03-08] MEDS: INSULIN GLARGINE 100 UNIT/ML SUBCUT SCH (23:35)
[2022-03-08] MEDS: RANOLAZINE 500 MG TABLET PO SCH (23:50)
[2022-03-08] MEDS: AMITRIPTYLINE 50 MG TABLET PO SCH (23:50)
[2022-03-08] MEDS: ISOSORBIDE MONONITRATE 60 MG TABLET PO SCH (23:50)
[2022-03-08] MEDS: METHENAMINE HIPPURATE 1 GM TABLET PO SCH (23:50)
[2022-03-09 04:47] LABS: Basophils % 0.5 % (0.0-0.8); Eosinophils # 0.2 10*3/uL (0.0-0.87); Eosinophils % 2.7 % (0.00-10.9); Hematocrit 33.7 VOL% (35.7-47.0); Hemoglobin 10.8 GM/DL (12.0-16.0); Immature Granulocytes % 0.5 %; Immature Granulocytes Absolute 0.04 #; Lymphocytes # 1.9 10*3/uL (1.4-4.0); Lymphocytes % 22.8 % (21.3-54.2); Mean Corpuscular Volume 89.2 FL (87-102); Mean Platelet Volume 10.6 FL (9.6-12.0); Neutrophils % 61.5 % (38.7-73.9); Platelet Count 168 T/CUMM (130-400); Red Blood Count 3.78 MC/CUMM (3.8-5.5); Red Cell Distribution Width 14.4 % (9.3-17.3); White Blood Count 8.5 T/CUMM (4-12)
[2022-03-09 05:21] LABS: Albumin 3.3 G/DL (3.4-5.0); Bilirubin,Total 0.4 MG/DL (0.20-1.00); Calcium 9.3 MG/DL (8.5-10.1); Osmolality,Calculated 277.5 MOS/KG (273-304); Potassium 3.8 MMOL/L (3.5-5.1); Total Protein 7.2 G/DL (6.4-8.2)
[2022-03-09] MEDS: CHOLECALCIFEROL 5,000 UNIT TABLET PO SCH (08:50)
[2022-03-09] MEDS: PANTOPRAZOLE 40 MG TABLET PO SCH (08:50)
[2022-03-09] MEDS: RANOLAZINE 500 MG TABLET PO SCH ×2 (08:50→20:50)
[2022-03-09] MEDS: traMADol 50 MG TABLET PO SCH ×3 (08:51→20:50)
[2022-03-09] MEDS: METHENAMINE HIPPURATE 1 GM TABLET PO SCH ×2 (08:51→20:50)
[2022-03-09] MEDS: predniSONE 5 MG TABLET PO SCH (08:51)
[2022-03-09] MEDS: ESCITALOPRAM 10 MG TABLET PO SCH (08:51)
[2022-03-09] MEDS: METOPROLOL TARTRATE 25 MG TABLET PO SCH ×2 (08:51→20:50)
[2022-03-09] MEDS: DOCUSATE SODIUM 100 MG CAPSULE PO SCH ×2 (08:52→20:50)
[2022-03-09] MEDS: LEVOFLOXACIN 500 MG TABLET PO SCH (08:52)
[2022-03-09] MEDS: CLOPIDOGREL 75 MG TABLET PO SCH (08:52)
[2022-03-09] MEDS ORDERED: PHENYTOIN ER 100 MG CAPSULE PO ONE (09:00)
[2022-03-09] MEDS ORDERED: PHENYTOIN IV ONE (09:00)
[2022-03-09] MEDS ORDERED: SODIUM CHLORIDE 0.9% IV ONE (09:00)
[2022-03-09] MEDS: CLORAZEPATE 3.75 MG TABLET PO SCH ×2 (09:16→20:50)
[2022-03-09] MEDS: INSULIN REGULAR 100 UNIT/ML SUBCUT SCH ×4 (09:16→20:50)
[2022-03-09] MEDS: AMITRIPTYLINE 50 MG TABLET PO SCH (20:50)
[2022-03-09] MEDS: MELATONIN 3 MG TABLET PO SCH (20:50)
[2022-03-09] MEDS: INSULIN GLARGINE 100 UNIT/ML SUBCUT SCH (20:50)
[2022-03-09] MEDS: ROSUVASTATIN 20 MG TABLET PO SCH (20:50)
[2022-03-09] MEDS: RIVAROXABAN 20 MG TABLET PO SCH (20:50)
[2022-03-09] MEDS: ISOSORBIDE MONONITRATE 60 MG TABLET PO SCH (20:50)
[2022-03-10 05:52] LABS: Calcium 9.6 MG/DL (8.5-10.1); Osmolality,Calculated 291.3 MOS/KG (273-304); Potassium 3.4 MMOL/L (3.5-5.1)
[2022-03-10 08:21] VITALS: BP 90/38
[2022-03-10] MEDS: INSULIN REGULAR 100 UNIT/ML SUBCUT SCH ×2 (08:29→12:14)
[2022-03-10] MEDS: METHENAMINE HIPPURATE 1 GM TABLET PO SCH (08:29)
[2022-03-10] MEDS: DOCUSATE SODIUM 100 MG CAPSULE PO SCH (08:30)
[2022-03-10] MEDS: RANOLAZINE 500 MG TABLET PO SCH (08:30)
[2022-03-10] MEDS: traMADol 50 MG TABLET PO SCH (08:30)
[2022-03-10] MEDS: CHOLECALCIFEROL 5,000 UNIT TABLET PO SCH (08:30)
[2022-03-10] MEDS: predniSONE 5 MG TABLET PO SCH (08:30)
[2022-03-10] MEDS: CLOPIDOGREL 75 MG TABLET PO SCH (08:31)
[2022-03-10] MEDS: CLORAZEPATE 3.75 MG TABLET PO SCH (08:31)
[2022-03-10] MEDS: LEVOFLOXACIN 500 MG TABLET PO SCH (08:31)
[2022-03-10] MEDS: METOPROLOL TARTRATE 25 MG TABLET PO SCH (08:31)
[2022-03-10] MEDS: ESCITALOPRAM 10 MG TABLET PO SCH (08:31)
[2022-03-10] MEDS: PANTOPRAZOLE 40 MG TABLET PO SCH (08:31)
[2022-03-10] MEDS ORDERED: POTASSIUM CHLORIDE 20 MEQ TABLET PO ONE (09:00)
[2022-03-10] MEDS ORDERED: PHENYTOIN ER 100 MG CAPSULE PO ONE (09:00)
[2022-03-10] MEDS ORDERED: INSULIN GLARGINE 100 UNIT/ML SUBCUT SCH (09:00)
[2022-03-15] MEDS ORDERED: NON-FORMULARY MEDICATION (Semaglutide [Ozempic] 0.25 mg or 0.5 mg(2 mg/1.5 mL) Pen Injecto SUBCUT SCH (09:00)
== END 2022-03-10 12:13 | disposition home or self-care (01) | DRG 101 ==
LOC: N.ED 12:04 → N.EDINP 14:10 → N.2E 21:44
PROVIDERS: ADMIT Family Medicine; ATTEND Family Medicine